=== PATIENT | male | born 1935 | race American Indian/Alaskan Native ===

== ENCOUNTER → 2020-09-27 | Outpatient (REF) | payer OTHER ==
[~2020-09-27] MED LIST: ACET-897 PO; BENA25CA4 PO; CLEO300C2 PO; D31000TA2 PO; DULC5TAB PO; FINA5TAB2 PO; FLOM0.4C39 PO; OXYC1TAB23 PO; PRESCAP PO; ROSU20TA5 PO; VITA-243 PO
== END ==
LOC: M SMT 17:17
PROVIDERS: ATTEND Urology
DX: N21.0 Calculus in bladder (principal); N47.1 Phimosis

== ENCOUNTER 2020-11-01 10:30 | Day surgery (SDC) | payer OTHER ==
[~2020-11-01] VITALS: Ht 177.8 cm; Wt 76.6 kg
[~2020-11-01 10:30] MED LIST changes: +LIDOCAINE 2% 100MG/5ML SDV (FOR ANES.) As Ordered ONE; +LR 1,000 ML IV ONE; +ONDANSETRON 4MG/2ML VIAL As Ordered ONE; -OXYC1TAB23 PO; +dexameTHASONE 4 MG/ML 1ML VIAL (J1100 PER 1MG) As Ordered ONE; +fentaNYL 100 MCG/2 ML INJECTION (J3010) As Ordered ONE; +propofoL 200 MG/20 ML VIAL As Ordered ONE
--- OUTSIDE RECORDS SUMMARY | 2020-11-01 10:38 | CCD ---
Author Author [facility] Organization [facility] Address Unknown Phone Unavailable Care Team Providers Care Cementer Oil Well Name Role Phone NellGeronimo Unavailable PROBLEMS Type Condition ICD9-CM Code [id number] Code Onset Dates Condition S tatus SNOMED Code Notes Problem Bladder stones N21.0 Active [id number] ALLERGIES No Known Allergies ENCOUNTERS from 1935 to 2020-10-03 Encounter Location Date Provider Diagnosis [facility] Urology [address] [place] [address] Sep Geronimo Camejo Bladder stones N21.0 ; Urinary retention R33.9 and Phimosis N47.1 IMMUNIZATIONS No Information SOCIAL HISTORY Tobacco Use: Social History Observation Description Date Details (start date - stop date) Never Smoker Sex Assigned At : Social History Observation Description Sex Assigned At Unknown Confucianism: Question Answer Notes Confucianism No muslim beliefs that would impact health care. Alcohol Screening: Question Answer Notes Did you have a drink containing alcohol in the past year? No Points 0 Interpretation Negative Tobacco Use: Question Answer Notes Are you a: never smoker REASON FOR REFERRAL No Information VITAL SIGNS Weight 167 lbs Sep, Height 71 in Sep, BMI 23.29 kg/m2 Sep, Heart Rate 94 /min Sep, Respiratory Rate 18 /min Sep, Oximetry 93 Sep, Blood pressure systolic 128 mm Hg Sep, Blood pressure diastolic 68 mm Hg Sep, MEDICATIONS Medication SIG (Take, Route, Frequency, Duration) Notes Start Da te End Date Status Rosuvastatin Calcium Acti ve Vitamin D3 Active Finasteride 5 MG 1 tablet Orally Once a day for 30 day(s) Sep, Active Tamsulosin HCl 0.4 MG 1 capsule Orally Once a day for 30 day(s) Active PreserVision AREDS Active Prilosec OTC 20 MG 1 tablet 30 minutes before m orning meal Orally Once a day for 30 day(s) Active PROCEDURES from 1935 to 2020-10-03 Procedure Date Ordered Result Body Site Medication: Cipro Tab 500mg Orally (Ciprofloxacin) 2020-09-27 N/A RESULTS Component Value Reference Range URINE CULTURE Reviewed date:10/03/2020 12:06:37 Interpretation: Performing Lab:[facility], [facility] [address] [address] , ,[place] [address] REASON FOR VISIT consult for surgery MEDICAL (GENERAL) HISTORY Type Description Date Medical History bladder stones Medical History diverticiltis Surgical History mesh in stomach Surgical History cystoscopy 09/27/2020 Hospitalization History diverticulitis Goals Section No Information Health Concerns No Information MEDICAL EQUIPMENT No Information MENTAL STATUS No Information FUNCTIONAL STATUS No Information ASSESSMENTS Encounter Date Diagnosis Assessment Notes Treatment Notes Treatm ent Clinical Notes Sep, Bladder stones (ICD-10 - N21.0) Sep, Urinary retention (ICD-10 - R33.9) Sep, Phimosis (ICD-10 - N47.1) PLAN OF TREATMENT Medication Medication Name Sig Start Date Stop Date Finasteride 5 MG 1 tablet Orally Once a day for 30 day(s) Sep Treatment Notes Test Name Order Date CBC - Complete Blood Count 2020-10-03 Basic Metabolic Profile (BMP) 2020-10-03 PT & APTT 2020-10-03 Electrocardiogram (EKG) 2020-10-03 ADM CHEST 2 VIEW 2020-10-03 Medication: Lidocaine HCl 2% Jelly 5mL Intravesically 2020-10-03 Future Test Test Name Order Date URINE CULTURE [id number] Next Appt Details 2 weeks postop circumcision and bladder litholapaxy, prn Reason: Insurance Providers Payer Name Payer Address Payer Phone Insured Name Patient Relati onship to Insured Coverage Start Date Coverage End Date 'S ADMINSTRATION ([place]) [place] VA CARE [id number] [place] [id number] [address]
--- OUTSIDE RECORDS SUMMARY | 2020-11-01 10:38 | CCD ---
Author Author [facility] Organization [facility] Address Unknown Phone Unavailable Care Team Providers Care Wedger Name Role Phone BryantCarlos bailey Unavailable PROBLEMS Type Condition ICD9-CM Code [id number] Code Onset Dates Condition S tatus W/U Status Risk SNOMED Code Notes Problem Bladder stones N21.0 Active confirmed 07687 003 ALLERGIES No Known Allergies ENCOUNTERS from 1935 to 2020-10-29 Encounter Location Date Provider Diagnosis [facility] Urology [address] [place] [address] Oct Carlos Hurtado IMMUNIZATIONS No Information SOCIAL HISTORY Tobacco Use: Social History Observation Description Date Details (start date - stop date) Never Smoker Sex Assigned At : Social History Observation Description Sex Assigned At Unknown Congregation: Question Answer Notes Congregation No gnosticism beliefs that would impact health care. Alcohol Screening: Question Answer Notes Did you have a drink containing alcohol in the past year? No Points 0 Interpretation Negative Tobacco Use: Question Answer Notes Are you a: never smoker REASON FOR REFERRAL No Information VITAL SIGNS No information MEDICATIONS Medication SIG (Take, Route, Frequency, Duration) [...] a day for 30 day(s) Active PROCEDURES No Information RESULTS No Results REASON FOR VISIT Patient Update MEDICAL (GENERAL) HISTORY Type Description Date Medical History bladder stones Medical History diverticiltis Surgical History mesh in stomach Surgical History cystoscopy 09/27/2020 Hospitalization History diverticulitis Goals Section No Information Health Concerns No Information MEDICAL EQUIPMENT No Information MENTAL STATUS No Information FUNCTIONAL STATUS No Information ASSESSMENTS No Information PLAN OF TREATMENT Medication Medication Name Sig Start Date Stop Date Finasteride 5 MG 1 tablet Orally Once a day for 30 day(s) Sep Next Appt Details Provider Name:Thais Kaba, 2020-11-04 9 11:30:00 AM, [address], [place], [address], Insurance Providers Payer Name Payer Address Payer Phone Insured Name Patient Relati onship to Insured Coverage Start Date Coverage End Date 'S ADMINSTRATION ([place]) [place]ARE [address] [address] [employer] [id number] [address] self
--- OUTSIDE RECORDS SUMMARY | 2020-11-01 10:38 | CCD ---
Author Author [facility] Organization [employer] [facility] Address Unknown Phone Unavailable Care Team Providers Care Pill Maker Name Role Phone Thais Kaba Unavailable PROBLEMS Type Condition ICD9-CM Code [id number] Code Onset Dates Condition S tatus SNOMED Code Notes Problem Bladder stones N21.0 Active [id number] ALLERGIES No Known Allergies ENCOUNTERS from 1935 to 2020-09-30 Encounter Location Date Provider Diagnosis [facility] Urology [address] [place] [address] Sep Thais Kaba Pre-op testing Z01.818 IMMUNIZATIONS No Information SOCIAL HISTORY Tobacco Use: Social History Observation Description Date Details (start date - stop date) Never Smoker Sex Assigned At : Social History Observation Description Sex Assigned At Unknown Baptist: Question Answer Notes Baptist No roman catholic beliefs that would impact health care. Alcohol [...] Information RESULTS No Results REASON FOR VISIT COVID test MEDICAL (GENERAL) HISTORY Type Description Date Medical History bladder stones Medical History diverticiltis Surgical History mesh in stomach Surgical History cystoscopy 09/27/2020 Hospitalization History diverticulitis Goals Section No Information Health Concerns No Information MEDICAL EQUIPMENT No Information MENTAL STATUS No Information FUNCTIONAL STATUS No Information ASSESSMENTS Encounter Date Diagnosis Assessment Notes Treatment Notes Treatm ent Clinical Notes Sep, Pre-op testing (ICD-10 - Z01.818) PLAN OF TREATMENT Medication Medication Name Sig Start Date Stop Date Finasteride 5 MG 1 tablet Orally Once a day for 30 day(s) Sep Treatment Notes Test Name Order Date Coronavirus 2019 NOSE (Send Out) COVID 2020-09-30 Insurance Providers Payer Name Payer Address Payer Phone Insured Name Patient Relati onship to Insured Coverage Start Date Coverage End Date 'S ADMINSTRATION ([place]) NON VA CARE [address] [address] [facility] [id number] [address] self
--- OUTSIDE RECORDS SUMMARY | 2020-11-01 10:38 | CCD ---
Author Author [facility] [employer] [facility] Organization [facility] [employer] [facility] Address Unknown Phone Unavailable Care Team Providers Care Elevated Motorman Name Role Phone Thais Kaba Unavailable PROBLEMS Type Condition ICD9-CM Code [id number] Code Onset Dates Condition S tatus W/U Status Risk SNOMED Code Notes Problem Bladder stones N21.0 Active confirmed 70810 003 ALLERGIES No Known Allergies ENCOUNTERS from 1935 to 2020-10-11 Encounter Location Date Provider Diagnosis [facility] Urology [address] [place] [address] Oct Thais Recore IMMUNIZATIONS No Information SOCIAL HISTORY Tobacco Use: Social History Observation Description Date Details (start date - stop date) Never Smoker Sex Assigned At : Social History Observation Description Sex Assigned At Unknown Samaritan: Question Answer Notes Samaritan No mosque beliefs that would impact health care. Alcohol [...] Information RESULTS No Results REASON FOR VISIT Surgery? MEDICAL (GENERAL) HISTORY Type Description Date Medical [...] Provider Name:Thais Kaba, 2020-11-04 9 11:30:00 AM, [address], [place], [address], Insurance Providers Payer Name Payer Address Payer Phone Insured Name Patient Relati onship to Insured Coverage Start Date Coverage End Date 'S ADMINSTRATION ([place]) NON VA CARE [address] [address] [facility] [id number] [address] self
--- OUTSIDE RECORDS SUMMARY | 2020-11-01 10:39 | CCD ---
Author Author [facility] [employer] em[facility] Organization [facility] [employer] [facility] Address Unknown Phone Unavailable Care Team Providers Care Piece Presser Name Role Phone NellGeronimo Unavailable PROBLEMS Type Condition ICD9-CM Code [id number] Code Onset Dates Condition S tatus SNOMED Code Notes Problem Bladder stones N21.0 Active [id number] ALLERGIES No Known Allergies ENCOUNTERS from 1935 to 2020-09-29 Encounter Location Date Provider Diagnosis [facility] Urology [address] [place] [address] Sep Geronimo Camejo IMMUNIZATIONS No Information SOCIAL HISTORY Tobacco Use: Social History Observation Description Date Details (start date - stop date) Never Smoker Sex Assigned At : Social History Observation Description Sex Assigned At Unknown Cheondoism: Question Answer Notes Cheondoism No caodaism beliefs that would impact health care. Alcohol [...] Information RESULTS No Results REASON FOR VISIT Circ MEDICAL (GENERAL) HISTORY Type Description Date Medical [...] Once a day for 30 day(s) Sep Insurance Providers Payer Name Payer Address Payer Phone Insured Name Patient Relati onship to Insured Coverage Start Date Coverage End Date 'S ADMINSTRATION ([place]) [place] CARE [address] [address] [facility] [id number] [address] self
--- OUTSIDE RECORDS SUMMARY | 2020-11-01 10:39 | CCD ---
Author Author [facility] Organization [facility] Address Unknown Phone Unavailable Care Team Providers Care Napkin Machine Operator Name Role Phone Car Fiore MD Unavailable Unavailable Jennifer Camejo MD Unavailable Unavailable Jennifer Camejo MD Unavailable Unavailable Nell, Jennifer Melton MD Unavailable Unavailable Nell, Jennifer Melton MD Unavailable Unavailable Jennifer Camejo MD Unavailable Unavailable Nell, Jennifer Melton MD Unavailable Unavailable Nell, Jennifer Melton MD Unavailable Unavailable Jennifer Camejo MD Unavailable Unavailable Nell, Jennifer Melton MD Unavailable Unavailable Jennifer Camejo MD Unavailable Unavailable Jennifer Camejo MD Unavailable Unavailable Nell, Jennifer Melton MD Unavailable Unavailable Nell, Jennifer Melton MD Unavailable Unavailable Jennifer Camejo MD Unavailable Unavailable Jennifer Camejo MD Unavailable Unavailable Jennifer Camejo MD Unavailable Unavailable Freedman, Zenon Duncan PA Unavailable Freedman R Duncan PA Unavailable Freedman R Duncan PA Unavailable Freedman R Duncan PA Unavailable Freedman R Duncan PA Unavailable Freedman R Duncan PA Unavailable Freedman, R Duncan PA Unavailable Freedman, R Duncan PA Unavailable Tano R Duncan PA Unavailable Car Fiore MD Unavailable Unavailable Galdino GOMEZ MD Unavailable Unavailable Galdino GOMEZ MD Unavailable Unavailable Galdino GOMEZ MD Unavailable Unavailable Galdino GOMEZ MD Unavailable Unavailable MARAVEGIAS, Galdino HENNESSY MD Unavailable Unavailable MARAVEGIAS, Galdino HENNESSY MD Unavailable Unavailable MARAVEGIAS, Galdino HENNESSY MD Unavailable Unavailable MARAVEGIAS, Galdino HENNESSY MD Unavailable Unavailable MARAVEGIAS, Galdino HENNESSY MD Unavailable Unavailable MARAVEGIAS, Galdino HENNESSY MD Unavailable Unavailable MARAVEGIAS, Galdino HENNESSY MD Unavailable Unavailable MARAVEGIAS, Galdino HENNESSY MD Unavailable Unavailable MARAVEGIAS, Galdino HENNESSY MD Unavailable Unavailable MARAVEGIAS, Galdino HENNESSY MD Unavailable Unavailable EliuRos Unavailable Unavailable MEDENT_8646, [id number] Unavailable MEDENT_8646, [id number] Unavailable MEDENT_8646, [id number] Unavailable MEDENT_8646, [id number] Unavailable MEDENT_8646, [id number] Unavailable MEDENT_8646, [id number] Unavailable MEDENT_8646, [id number] Unavailable MEDENT_8646, [id number] Unavailable MEDENT_8646, [id number] Unavailable MEDENT_8646, [id number] Unavailable MEDENT_8646, [id number] Unavailable MEDENT_8646, [id number] Unavailable MEDENT_8646, [id number] Unavailable MEDENT_8646, [id number] Unavailable RAYMUNDO, Usha BRITT Unavailable Unavailable RAYMUNDO, Usha BRITT Unavailable Unavailable RAYMUNDO, Uhsa BRITT Unavailable Unavailable RAYMUNDO, Usha WANG PA Unavailable Unavailable RAYMUNDO, Usha BRITT Unavailable Unavailable RAYMUNDO, Usha BRITT Unavailable Unavailable RAYMUNDO, Usha BRITT Unavailable Unavailable RAYMUNDO, A KATHLEEN PA Unavailable Unavailable RAYMUNDO, A KATHLEEN PA Unavailable Unavailable RAYMUNDO, A KATHLEEN PA Unavailable Unavailable RAYMUNDO, A KATHLEEN PA Unavailable Unavailable RAYMUNDO, A KATHLEEN PA Unavailable Unavailable RAYMUNDO, A KATHLEEN PA Unavailable Unavailable Rice, A Cecy MARTINEZ Unavailable Unavailable Rice, Usha Sam MD Unavailable Unavailable ZEGIL, D THUY CYLINDER BLOCK MECHANIC Unavailable Unavailable ZEGIL, D THUY CYLINDER BLOCK MECHANIC Unavailable Unavailable ZEGIL, D THUY CYLINDER BLOCK MECHANIC Unavailable Unavailable ELIU, ROS PA Unavailable Unavailable ELIU, ROS PA Unavailable Unavailable ELIU, ROS PA Unavailable Unavailable ELIU, ROS PA Unavailable Unavailable ELIU, ROS PA Unavailable Unavailable ELIU, ROS PA Unavailable Unavailable ELIU, ROS PA Unavailable Unavailable Jennifer Camejo MD Unavailable Unavailable Re-disclosure Warning The records that you are about to access may contain information from federally-assisted alcohol or drug abuse programs. If such information is present, then the following federally mandated warning applies: This information has been disclosed to you from records protected by federal confidentiality rules (42 CFR part 2). The federal rules prohibit you from making any further disclosure of this information unless further disclosure is expressly permitted by the written consent of the person to whom it pertains or as otherwise permitted by 42 CFR part 2. A general authorization for the release of medical or other information is NOT sufficient for this purpose. The Federal rules restrict any use of the information to criminally investigate or prosecute any alcohol or drug abuse patient.The records that you are about to access may contain highly sensitive health information, the redisclosure of which is protected by Article 27-F of the [facility] Public Health law. If you continue you may have access to information: Regarding HIV / AIDS; Provided by facilities licensed or operated by the [facility] Office of Mental Health; or Provided by the [facility] Office for People With Developmental Disabilities. If such information is present, then the following [facility] mandated warning applies: This information has been disclosed to you from confidential records which are protected by state law. State law prohibits you from making any further disclosure of this information without the specific written consent of the person to whom it pertains, or as otherwise permitted by law. Any unauthorized further disclosure in violation of state law may result in a fine or assisted sentence or both. A general authorization for the release of medical or other information is NOT sufficient authorization for further disc losure. Allergies and Adverse Reactions Type Description Substance Reaction Status Data Source(s ) Drug allergy Drug allergy Penicillins Hives [facility] Drug allergy Drug allergy No Known Allergies [facility] Encounters Encounter Providers Location Date Indications Data Source(s ) Outpatient Attender: Wiley Fiore MDAttender: Wiley Fiore MD ED-LABPNP 10/27/2020 09:36:00 AM EST - 10/27/2020 09:37:00 AM EST [id number] [facility] [id number] Patient discharged. Emergency Attender: Duncan BRITT ED-ED 021 09:03:00 AM EST - 10/27/2020 10:12:00 AM EST NEEDS CATHATER PUT IN [facility] NEEDS CATHATER PUT IN Patient discharged. Emergency Attender: Cecy Rashid MD ED-ED 10/24 08:01:00 AM EST - 10/24/2020 10:27:00 AM EST CATHETER ISSUE [facility] CATHETER ISSUE Patient discharged. [place] [address] [facility] [address] 10/24/2020 12:00:00 AM EST eCW1 ([facility]) Outpatient CPSCAORT-LABEJN 10/23/2020 09:44:00 AM EST [facility] Emergency Attender: Ros WORTHYttender: ROS BRITT ED-ED 10/23/2020 09:07:00 AM EST - 10/23/2020 10:33:00 AM EST CATHETER ISSUE [facility] CATHETER ISSUE Patient discharged. Outpatient Attender: Geronimo Camejo MDAttender: Geronimo Camejo MD ED-LAB 10/23/2020 08:29:00 AM EST - 10/23/2020 08:30:00 AM EST N210 N471 [facility] N210 N471 Patient discharged. [place] [address] [facility] [address] 10/09/2020 12:00:00 AM EST eCW1 ([facility]) Unknown [address] [facility] [address] 09/30/2020 12:00:00 AM EST eCW1 ([facility]) (Cysto1) Urology [address] [place] [address] 09/27/2020 12:00:00 AM EST eCW1 [facility] Unknown [address] [facility] [address] 09/27/2020 12:00:00 AM EST [facility] [place] [address] [facility] [place] [address] 09/25/2020 12:00:00 AM EST eCW1 [facility]) Unknown [address] [facility] [place] [address] 09/17/2020 12:00:00 AM EST eCW1 [facility]) Unknown [address] [facility] [address] 09/17/2020 12:00:00 AM EST eCW1 ([facility]) Unknown [address] [facility] [address] 09/02/2020 12:00:00 AM EST eCW1 [facility]) Out[place] [address] [facility] [address] 08/23/2020 12:00:00 AM EST [facility]CW1 [facility] Outpatient Attender: [id number] [facility]_8646 ED-IMAG 08/09/2020 02:49:00 PM EST - 08/09/2020 02:50:00 PM EST R33.9 [facility] R33.9 Patient discharged. Outpatient CPSCAORT-LABEJN 07/24/2020 02:55:00 PM EST [facility] Emergency Attender: KATHLEEN BRITT ED-ED 07/24 12:49:00 PM EST - 07/24/2020 06:37:00 PM EST BLOOD IN URINE [facility] BLOOD IN URINE Patient discharged. Outpatient CPSCAORT-LABEJN 05/31/2020 02:49:00 PM EDT [facility] Emergency Attender: MINOO GOMEZ MD ED-ED 0 05/31/2020 10:52:00 AM EDT - 05/31/2020 12:17:00 PM EDT WRIST INJURY FOLLOW UP [facility] WRIST INJURY FOLLOW UP Patient discharged. Emergency Attender: THUY MULLER ED-ED 04/2020 11:59:00 AM EDT - 05/14/2020 01:43:00 PM EDT FALL LEFT WRIST [facility] FALL LEFT WRIST Patient discharged. Outpatient CPSCAORT-LABEJN 05/10/2020 02:21:00 PM EDT [facility] Emergency Attender: MINOO GOMEZ MD ED-ED 0 05/10/2020 11:48:00 AM EDT - 05/10/2020 12:40:00 PM EDT UTI PROBLEM [facility] UTI PROBLEM Patient discharged. Medications Medication Brand Name Start Date Product Form Dose Route Admi nistrative Instructions Pharmacy Instructions Status Indications Reaction Description Data Source(s) 300 mg 10/23/2020 12:00:00 AM EST capsule 21 TAKE ONE CAPSULE BY MOUTH THREE TIMES A DAY TAKE ONE CAPSULE BY MOUTH THREE TIMES A DAY SOLD: 10/23/2020 [facility] Finasteride 5 MG Oral Tablet Finasteride 5 MG 09/27/2020 12:00:00 A M EST 1.0 {tablet} active Finasteride 5 MG eCW1 ( [facility]) Finasteride 5 MG Oral Tablet Finasteride 5 MG 09/27/2020 12:00:00 A M EST 1.0 {tablet} active Finasteride 5 MG eCW1 ( [facility]) Finasteride 5 MG Oral Tablet Finasteride 5 MG 09/27/2020 12:00:00 A M EST 1.0 {tablet} active Finasteride 5 MG eCW1 ( [facility]) Finasteride 5 MG Oral Tablet Finasteride 5 MG 09/27/2020 12:00:00 A M EST 1.0 {tablet} active Finasteride 5 MG eCW1 ( [facility]) Finasteride 5 MG Oral Tablet Finasteride 5 MG 09/27/2020 12:00:00 A M EST 1.0 {tablet} active Finasteride 5 MG eCW1 ( [facility]) Finasteride 5 MG Oral Tablet Finasteride 5 MG 09/27/2020 12:00:00 A M EST 1.0 {tablet} active Finasteride 5 MG eCW1 ( [facility]) Cephalexin 500 MG Oral Capsule CEPHALEXIN 05/31/2020 12:00:00 AM EDT capsule 30 TAKE ONE CAPSULE BY MOUTH THREE TIMES A DAY TAKE ONE C APSULE BY MOUTH THREE TIMES A DAY SOLD: 06/06/2020 [facility] 0.4 mg 05/11/2020 12:00:00 AM EDT capsule 90 TAKE ONE CAPSULE BY MOUTH EVERY DAY TAKE ONE CAPSULE BY MOUTH EVERY DAY SOLD: 05/16/2020 [facility] 10 mg 05/11/2020 12:00:00 AM EDT capsule,delayed release (DR/EC) 90 TAKE ONE CAPSULE BY MOUTH EVERY DAY TAKE ONE CAPSULE BY MOUTH EVERY DAY SOLD: 05/16/2020 [facility] Sulfamethoxazole 800 MG / Trimethoprim 160 MG Oral Tab let 800-160 mg SULFAMETHOXAZOLE/TRIMETHOPRIM 05/10/2020 12:00:00 AM EDT tablet 20 TAKE ONE TABLET BY MOUTH TWICE A DAY TAKE ONE TABLET BY MOUTH TWICE A DAY SOLD: 05/10/2020 [facility] Insurance Providers Payer name Policy type / Coverage type Policy ID Covered green party ID Covered green party's relationship to yen Policy Yen Plan Information 'S ADMINISTRATION [id number] SP [id number] MEDICAID [id number] S [id number] MEDICARE [id number] [id number] [facility] [id number] S [id number] MEDICAID [id number] S [id number] MEDICARE [id number] S [id number] M Problems, Conditions, and Diagnoses Code Display Name Description Problem Type Effective Dates Data Source(s) N21.0 Calculus of bladder Bladder stones Problem 08/23/2020 1 2:00:00 AM EST eCW1 ([facility]) Z11.52 ENCOUNTER FOR SCREENING FOR COVID-19 ENC OUNTER FOR SCREENING FOR COVID-19 Diagnosis 10/27/2020 09:36:00 AM EST [facility]un Z01.812 Encounter for preprocedural laboratory e xamination ENCOUNTER FOR PREPROCEDURAL LABORATORY EXAMINATION Diagnosis 10/27/2020 09:36:00 AM EST [facility] N47.1 Phimosis PHIMOSIS Diagnosis 10/23/2020 08:29:00 AM [facility] N21.0 Calculus in bladder CALCULUS IN BLADDER Diagnosis 0 10/23/2020 08:29:00 AM [facility] N28.1 Cyst of kidney, acquired CYST OF KIDNEY, ACQUIRED Diag nosis 08/09/2020 02:49:00 PM [facility] R33.9 Retention of urine, unspecified RETENTION OF URINE, UN SPECIFIED Diagnosis 08/09/2020 02:49:00 PM [facility] Z87.440 Personal history of urinary (tract) infe ctions PERSONAL HISTORY OF URINARY (TRACT) INFECTIONS Diagnosis 07/24/2020 12:49:00 PM [facility] R31.9 Hematuria, unspecified HEMATURIA, UNSPECIFIED Diagnosi s 07/24/2020 12:49:00 PM [facility] N39.0 Urinary tract infection, site not specif ied URINARY TRACT INFECTION, SITE NOT SPECIFIED Diagnosis 07/24/2020 12:49:00 PM [facility] spital N13.39 Other hydronephrosis OTHER HYDRONEPHROSIS Diagnosis 07/24/2020 12:49:00 PM [facility] Y92.[address] or not applicable UNSPECIFIED PLACE OR NOT APPLICABLE Diagnosis 05/14/2020 11:59:00 AM [facility] W01.198A Fall on same level from slip ping, tripping and stumbling with subsequent striking against other object, initial encounter FALL SAME LEV FROM SLIP/TRIP W STRIKE AGNST OTH OBJECT, INIT Diagnosis 05/14/2020 11:59:0 0 AM [facility] S52.532A Colles' fracture of left radius, initial encounter for closed fracture COLLES' FRACTURE OF LEFT RADIUS, INIT FOR CLOS FX Diagnosis 04/2020 11:59:00 AM [facility] N40.1 Benign prostatic hyperplasia with lower urinary tract symptoms BENIGN PROSTATIC HYPERPLASIA WITH LOWER URINARY TRACT SYMP Diagnosis 11:48:00 AM [facility] Surgeries/Procedures Procedure Description Date Indications Data Source(s) ECG ROUTINE ECG W/LEAST 12 LDS TRCG ONLY W/O I&R ELECTROCARD IOGRAM TRACING 10/23/2020 12:00:00 AM [facility] URNLS DIP STICK/TABLET REAGENT AUTO MICROSCOPY URINALYSIS AU TO W/SCOPE 10/23/2020 12:00:00 AM [facility] Non-covered item or service NON-COVERED ITEM OR SERVICE 10/07 12:00:00 AM [facility] TOBACCO USE ASSESSED 09/27/2020 12:00:00 AM [facility] eC1 ([facility]) Gupta Catheter Coude Insertion 18F 08/23/2020 12:00:00 AM [place] [address] ([facility]) US RETROPERITONEAL REAL TIME W/IMAGE LIMITED US EXAM ABDO BA CK WALL DELGADO 08/09/2020 12:00:[address] [facility] [address] ABDOMEN & PELVIS W/O CONTRST 1/> BODY [facility] CT ABD & PE LV 1/> REGNS 07/24/2020 12:00:00 AM [facility] Low osmolar contrast material, 300-399 mg/ml iodine co ncentration, per ml Locm 300-399mg/ml iodine,1ml Long 07/24/2020 12:00:00 AM [facility] [address] SARS-COV-2 COVID-19 AMP PRB 07/24/2020 12:00:00 AM [facility] THROMBOPLASTIN TIME PARTIAL PLASMA/WHOLE BLOOD THROMBOPLASTI N TIME PARTIAL 07/24/2020 12:00:00 AM [facility] PROTHROMBIN TIME PROTHROMBIN TIME 07/24/2020 12:00:00 AM [facility] BLOOD COUNT COMPLETE AUTO&AUTO DIFRNTL WBC COUNT COMPLETE CB C W/AUTO DIFF WBC 07/24/2020 12:00:00 AM [facility] COMPREHENSIVE METABOLIC PANEL COMPREHEN METABOLIC PANEL 07/07 12:00:00 AM [facility] Infusion, normal saline solution , 1000 cc 07/24/2020 12:00:00 AM [facility] Injection, ciprofloxacin for intravenous infusion, 200 mg 07/24/2020 12:00:00 AM [facility] THER PROPH/DX NJX IV PUSH SINGLE/1ST SBST/DRUG THER/PROPH/DI AG INJ IV PUSH 07/24/2020 12:00:00 AM [facility] EMERGENCY DEPT VISIT HIGH SEVERITY&THREAT FUNCJ EMERGENCY DE PT VISIT 07/24/2020 12:00:00 AM [facility] RADEX WRIST 2 VIEWS X-RAY EXAM OF WRIST 05/14/2020 12:00:00 AM [facility] APPLICATION SHORT ARM SPLINT FOREARM-HAND STATIC APPLY FOREA RM SPLINT 05/14/2020 [facility] MODERATE SEVERITY EMERGENCY DEPT VISIT 05/14/2020 12:00:00 AM [facility] CUL BACT AEROBIC ADDL METHS DEFINITIVE EA ISOL CULTURE AEROB IC IDENTIFY 05/10/2020 [facility] LOW/MODER SEVERITY EMERGENCY DEPT VISIT 05/10/2020 12:00:00 AM [facility] Results ID Date Data Source [id number] 10/27/2020 09:00:00 AM EST [facility] Name Value Range Interpretation Code Description Data Lita rce(s) Supporting Document(s) Respiratory specimen severe acute respir atory syndrome coronavirus 2 (SARS-CoV-2) RNA Negative (qualifier value) [facility] This lab was ordered by [facility] and reported by . ID Date Data Source [id number] 10/28/2020 03:40:00 PM [facility] Name Value Range Interpretation Code Description Data Lita rce(s) Supporting Document(s) SARS-CoV-2 RNA INHOUSE Negative Normal (applies to non-n umeric results) [facility] THIS IS A STATE REPORTABLE COMMUNICABLE DISEASE. Testing was performed using the [employer] COVID-19 MDx Assay. This test has been authorized by FDA under an (Emergency Use Authorization) EUA for use by authorized laboratories for individuals who are suspected of COVID-19 by their healthcare provider. This test is only authorized for the duration of the declaration that circumstances exist justifying the authorization of emergency use of in vitro diagnostic tests for detection and/or diagnosis of SARS-CoV-2. Methodology: Endpoint RT-PCR. Fact sheets for this EUA assay can be found at the following links: Providers: https://www.fda.gov/media/327029/download Patients : https://www.fda.gov/media/058628/download THIS IS A [facility] REPORTABLE COMMUNICABLE DISEASE Negative results do not preclude SARS-CoV-2 infection and should not be used as the sole basis for patient management decisions. Negative results must be combined with clinical observations,patient history, and epidemiological information. ID Date Data Source [id number] 10/25/2020 02:46:00 PM EST [facility] spital Procedure Performed By: [facility] [address] [place] [address] Director: Patrizia Frias MD Procedure Performed By: [facility] [address] [place] [address] Director: Patrizia Frias MD Name Value Range Interpretation Code Description Data Lita rce(s) Supporting Document(s) Urine Culture [facility] ID Date Data Source [id number] 10/25/2020 02:19:00 PM EST [facility] Procedure Performed By: [facility] [address] [place] [address] Director: Patrizia Frias MD Name Value Range Interpretation Code Description Data Lita rce(s) Supporting Document(s) Urine Culture [facility] ospital ID Date Data Source [id number] 10/23/2020 10:00:00 AM [facility] Collected By: Nurse Initials: al Time Collected: 941 Collected By: Nurse Initials: al Time Collected: 941 Name Value Range Interpretation Code Description Data Lita rce(s) Supporting Document(s) Color,Urine Colorl-Dk Y Normal (applies to non-numeric res ults) [facility] Clarity,Urine Clear Normal (applies to non-numeric re sults) [facility] Specific [place],Urine 1.005-1.030 Normal (applies to non- numeric results) [facility] pH,Urine 5.0-8.0 Normal (applies to non-numeric resul ts) [facility] Protein,Urine Negative Normal (applies to non-numeric re sults) [facility] Glucose,Urine Negative Normal (applies to non-numeric re sults) [facility] Ketones,Urine Negative Normal (applies to non-numeric re sults) [facility] Blood,Urine Negative [facility] Bil[facility]rine Negative Normal (applies to non-numeric results) [facility] Urobilinogen,Urine 0.2-1.0 Normal (applies to non-numer ic results) [facility] Leukocyte Esterase,Urine Negative [facility] Nitrite,Urine Negative Normal (applies to non-numeric re sults) [facility] ID Date Data Source [id number] 10/23/2020 10:00:00 AM [facility] Collected By: Nurse Initials: al Time Collected: 941 Collected By: Nurse Initials: al Time Collected: 941 Name Value Range Interpretation Code Description Data Lita rce(s) Supporting Document(s) RBC,Urine None Seen [facility] WBC,Urine None Seen [facility] Casts,Urine None Seen Normal (applies to non-numeric resu lts) [facility] Epithelial Cells,Urine None - Few Normal (applies to non-n umeric results) [facility] Bacteria,Urine None Seen [facility] ital ID Date Data Source [id number] 10/23/2020 09:44:00 AM [facility] Imaging Services Department Imaging Report [address] [place] [address] %(RAD)RES..mtdd.print.filter("line") Name: JOANNE LEIVA Car : 1935 Age/Sex: 84M Ordering Provider: Geronimo Camejo MD Med Rec #: [id number] Reg Status: REG REF Room #: Date of Service: 10/23/20 Report Number: [id number] cc:PCP None; Geronimo Camejo MD Send Report To: [id number] XRP/XR Chest 2 View [Pa & Lat] Reason for exam: PHIMOSIS Prior examination: None available. FINDINGS: There is no evidence of acute consolidation or congestive heart failure. The lungs are hyperexpanded bilaterally. The heart is not enlarged. There is no hilar adenopathy. The aorta is unfolded, tortuous, and calcified. There are no large pleural effusions. The bones are demineralized with degenerative changes. IMPRESSION: No evidence of significant acute pulmonary disease. Time portable performed: Fluoroscopy time in seconds: Number of Exposures: Contrast Agent in ml: Method of Administration: REPORT SIGNATURE ON FILE Reported By: Sheng Harris MD <Electronically signed by Sheng Harris MD> 10/23/20 1146 Dictation Date/Time: 10/23/2012 Transcribed Date/Time: 10/23/2044 Gm: NICHOLAS Name Value Range Interpretation Code Description Data Lita rce(s) Supporting Document(s) ID Date Data Source [id number] 10/24/2020 10:37:00 AM [facility] spital Procedure Performed By: [facility] [address] [place] [address] Director: Patrizia Frias MD Mixed david: Mixed david, probable contamination. Name Value Range Interpretation Code Description Data Lita rce(s) Supporting Document(s) ID Date Data Source [id number] 10/23/2020 09:46:00 AM [facility] Name Value Range Interpretation Code Description Data [facility] rce(s) Supporting Document(s) PT 9.2-11.7 Normal (applies to non-numeric results) [facility] INR Normal (applies to non-numeric results) [facility] The use of INR is restricted to patients on stable oral anticoagulant. Therapeutic Range: 2.0 - 3.0 High Risk Range: 2.5 - 3.5 ID Date Data Source [id number] 10/23/2020 09:46:00 AM [facility] Name Value Range Interpretation Code Description Data Lita rce(s) Supporting Document(s) PTT 23.8-37.9 Below low normal [facility] spital ID Date Data Source [id number] 10/23/2020 09:32:00 AM [facility] Name Value Range Interpretation Code Description Data Lita rce(s) Supporting Document(s) Sodium 140 mmol/L 136-145 Normal (applies to non-numeric resul ts) [facility] Potassium 3.5-5.1 Normal (applies to non-numeric resul ts) [facility] Chloride 102 mmol/L 98-107 Normal (applies to non-numeric resul ts) [facility] Carbon Dioxide CO2 21-32 Normal (applies to non-numer ic results) [facility] Anion Gap 5.0-16.0 Normal (applies to non-numeric resul ts) [facility] BUN 12 mg/dL 7-18 Normal (applies to non-numeric results) [facility] Creatinine,Serum 0.8-1.5 Normal (applies to non-numeric results) [facility] GFR 56 mL/min >60 Below low normal [facility] spital Glucose Level 97 mg/dL 60-99 Normal (applies to non-numeric re sults) [facility] Reference range is only applicable when patient is fasting Note the following drug interference: Sulfasalazine Sulfapyridine Can see falsely depressed Can see falsely elevated result with up to 17% results with up to 11% decrease in measurement increase in measurement Recommend patients be collected for this test prior to administration of either drug. Calcium 8.5-10.1 Normal (applies to non-numeric resul ts) [facility] ID Date Data Source [id number] 10/23/2020 09:18:00 AM [facility] Name Value Range Interpretation Code Description Data Lita rce(s) Supporting Document(s) White Blood Count 3.5-10.5 Normal (applies to non-numeri c results) [facility] Red Blood Count 4.30-5.70 Normal (applies to non-numeric results) [facility] Hemoglobin 13.5-17.5 Normal (applies to non-numeric resul ts) [facility] Hematocrit 38.8-50.0 Normal (applies to non-numeric resul ts) [facility] Mean Corpuscular Volume 81.2-95.1 Above high normal [facility] Mean Corpuscular Hgb 25.6-32.2 Normal (applies to non-num raffaele results) [facility] Mean Corpuscular Hgb Conc 32.0-36.0 Normal (applies to no n-numeric results) [facility] Red Cell Distribution Width 11.8-15.6 Normal (appli es to non-numeric results) [facility] Platelet Count 199 x10 3/uL 150-450 Normal (applies to non-numeric results) [facility] Mean Platelet Volume 9.4-12.4 Normal (applies to non-num raffaele results) [facility] Neutrophils% (Auto) 31.0-71.0 Normal (applies to non-nume lizzeth results) [facility] Lymphocytes% (Auto) 20.0-55.0 Normal (applies to non-nume lizzeth results) [facility] Monocytes% (Auto) 4.0-12.0 Normal (applies to non-numeri c results) [facility] Eosinophils% (Auto) 1.0-8.0 Normal (applies to non-nume lizzeth results) [facility] Basophils% (Auto) 0.0-2.0 Normal (applies to non-numeri c results) [facility] Immature Granulocytes% (Auto) 0.0-2.0 Normal (zurdo lies to non-numeric results) [facility] Neutrophils# (Auto) 1.50-6.20 Normal (applies to non-nume lizzeth results) [facility] Lymphocytes# (Auto) 1.20-4.00 Normal (applies to non-nume lizzeth results) [facility] Monocytes# (Auto) 0.00-0.90 Normal (applies to non-numeri c results) [facility] Eosinophils# (Auto) 0.00-0.50 Normal (applies to non-nume lizzeth results) [facility] Basophils# (Auto) 0.00-0.20 Normal (applies to non-numeri c results) [facility] Immature Granulocytes# (Auto) 0.00-7.00 No rmal (applies to non-numeric results) [facility] ID Date Data Source [id number] 10/24/2020 10:25:00 AM EST [facility] Procedure Performed By: [facility] [address] [place] [address] Director: Patrizia Frias MD Name Value Range Interpretation Code Description Data Lita rce(s) Supporting Document(s) Urine Culture Normal (applies to non-numeric re sults) [facility] ID Date Data Source URINE CULTURE 09/27/2020 12:00:00 AM EST eCW1 ([facility]) Name Value Range Interpretation Code Description Data Lita rce(s) Supporting Document(s) URINE CULTURE eCW1 ([facility]) ID Date Data Source [id number] 09/09/2020 10:17:00 AM EST [facility] Name Value Range Interpretation Code Description Data Lita rce(s) Supporting Document(s) Respiratory specimen severe acute respir atory syndrome coronavirus 2 (SARS-CoV-2) RNA [facility] This lab [facility] and reported by . ID Date Data Source [id number] 08/12/2020 08:25:00 AM EST [facility] Imaging Services Department Imaging Report [address], [place] [address] %(RAD)RES..mtdd.print.filter("line") Name: JOANNE LEIVA : 1935 Age/Sex: 84M Ordering Provider: RENZO Tejada Med Rec #: [id number] Reg Status: DEP REF Room #: Date of Service: 08/09/20 Report Number: [id number] cc:RENZO Tejada; PCP None Send Report To: [id number] US/US Renal Ultrasound Reason for exam: EVALUATE FOR HYDRONEPHROSIS Prior examination: None available. FINDINGS: The right kidney is measured at 10.9 x 5.5 x 7.3 cm. The left kidneymeasures 11.4 x 5 x 5.9 cm. The kidneys are unremarkable in size and echotexture without solid mass or hydronephrosis demonstrated. There is a cyst or minimally complex cyst in the upper pole of the right kidney measuring 1.7 x 1.3 x 2.9 cm. There are unremarkable bilateral resistive indices demonstrated on the current study. IMPRESSION: Small cyst or minimally complex in the right kidney, otherwise unremarkable renal sono gram. REPORT SIGNATURE ON FILE Reported By: Sheng Harris MD <Electronically signed by Sheng Harris MD> 08/12/20 1050 Dictation Date/Time: 08/09/20 1527 Transcribed Date/Time: 08/12/20 0825 Gm: NICHOLAS Name Value Range Interpretation Code Description Data Lita rce(s) Supporting Document(s) ID Date Data Source [id number] 07/24/2020 05:40:00 PM EST [facility] First test? YESEmployed in healthcare? NOSymptomatic per CDC? NOHospitalized? NOICU? NOResident in congregated care? ex long term, [facility] NO? NO Name Value Range Interpretation Code Description Data Lita rce(s) Supporting Document(s) SARS-CoV-2 RNA Negative Normal (applies to non-numeric r esults) [facility] Negative results should be treated as pr esumptive and, if inconsistent with clinical signs and symptoms or necessary for patient management, should be tested with different authorized or cleared molecular tests. Negative results do not preclude SARS-CoV-2 infection and should not be used as the sole basis for patient management decisions. Negative results should be considered in the context of a patient???s recent exposures, history and the presence of clinical signs and symptoms consistent with COVID-19. This test has not been FDA cleared or approved; this test has been authorized by FDA under an Emergency Use Authorization for use by laboratories certified under the Clinical Laboratory Improvement Amendments of 1988 (CLIA), 42 U.S.C. ???263a, to perform moderate complexity/high complexity tests and at the Point of Care (POC), i.e., in patient care settings operating under a CLIA Certificate of Waiver, Certificate of Compliance, or Certificate of Accreditation. Factsheets for healthcare providers: https://www.fda.gov/media/563686/download Factsheets for patients: https://www.fda.gov/media/291668/download The ID NOW Instrument is a rapid molecular in vitro diagnostic test utilizing an isothermal nucleic acid amplification technology intended for the qualitative detection of nucleic acid from the SARS-CoV-2 viral RNA. THIS IS A STATE REPORTABLE COMMUNICABLE DISEASE. Manual entry verified by Lucius Gao 07/24/20 1739 ID Date Data Source [id number] 07/24/2020 03:29:00 PM EST [facility] Name Value Range Interpretation Code Description Data Lita rce(s) Supporting Document(s) Sodium 139 mmol/L 136-145 Normal (applies to non-numeric resul ts) [facility] Potassium 3.5-5.1 Normal (applies to non-numeric resul ts) [facility] Chloride 101 mmol/L 98-107 Normal (applies to non-numeric resul ts) [facility] Carbon Dioxide CO2 21-32 Normal (applies to non-numer ic results) [facility] Anion Gap 5.0-16.0 Normal (applies to non-numeric resul ts) [facility] BUN 20 mg/dL 7-18 Above high normal [facility] ospital Creatinine,Serum 0.8-1.5 Normal (applies to non-numeric results) [facility] GFR 48 mL/min >60 Below low normal [facility] spital Glucose Level 120 mg/dL 60-99 Above high normal [facility] Reference range is only applicable when patient is fasting Note the following drug interference: Sulfasalazine Sulfapyridine Can see falsely depressed Can see falsely elevated result with up to 17% results with up to 11% decrease in measurement increase in measurement Recommend patients be collected for this test prior to administration of either drug. Calcium 8.5-10.1 Normal (applies to non-numeric resul ts) [facility] Bilirubin,Total 0.1-1.9 Normal (applies to non-numeric results) [facility] SGOT(AST) 25 U/L 15-37 Normal (applies to non-numeric resul ts) [facility] Note the following drug interference: Sulfasalazine Sulfapyridine Can see falsely depressed Can see falsely elevated result with up to 10% results with up to 10% decrease in measurement increase in measurement Recommend patients be collected for this test prior to administration of either drug. SGPT(ALT) 65 U/L 12-78 Normal (applies to non-numeric resul ts) [facility] Note the following drug interference: Sulfasalazine Sulfapyridine Can see falsely depressed Can see falsely elevated result with up to 29% results with up to 10% decrease in measurement increase in measurement Recommend patients be collected for this test prior to administration of either drug. Alkaline Phosphatase 170 U/L 38-126 Above high normal [facility] can increase Alkaline Phosp le vels up to 2 times the normal adult value. Normal values for children and adolescents are 2 to 3 times the normal adult value. Total Protein 6.0-8.2 Normal (applies to non-numeric re sults) [facility] Albumin Level 3.4-5.0 Below low normal [facility] ID Date Data Source [id number] 07/24/2020 03:12:00 PM [facility] Name Value Range Interpretation Code Description Data Lita rce(s) Supporting Document(s) PTT 23.8-37.9 Normal (applies to non-numeric results) [facility] ID Date Data Source [id number] 07/24/2020 03:12:00 PM [facility] Name Value Range Interpretation Code Description Data Lita rce(s) Supporting Document(s) PT 9.2-11.7 Normal (applies to non-numeric results) [facility] INR Normal (applies to non-numeric results) [facility] The use of INR is restricted to patients on stable oral anticoagulant. Therapeutic Range: 2.0 - 3.0 High Risk Range: 2.5 - 3.5 ID Date Data Source [id number] 07/24/2020 02:54:00 PM EST [facility] Name Value Range Interpretation Code Description Data Lita rce(s) Supporting Document(s) White Blood Count 3.5-10.5 Above high normal [facility] Red Blood Count 4.30-5.70 Normal (applies to non-numeric results) [facility] Hemoglobin 13.5-17.5 Below low normal [facility] ospital Hematocrit 38.8-50.0 Normal (applies to non-numeric resul ts) [facility] Mean Corpuscular Volume 81.2-95.1 Above high normal [facility] Mean Corpuscular Hgb 25.6-32.2 Normal (applies to non-num raffaele results) [facility] Mean Corpuscular Hgb Conc 32.0-36.0 Below low normal [facility] Red Cell Distribution Width 11.8-15.6 Normal (appli es to non-numeric results) [facility] Platelet Count 350 x10 3/uL 150-450 Normal (applies to non-numeric results) [facility] Mean Platelet Volume 9.4-12.4 Below low normal [facility] Neutrophils% (Auto) 31.0-71.0 Above high normal [facility] Lymphocytes% (Auto) 20.0-55.0 Below low normal [facility] Monocytes% (Auto) 4.0-12.0 Normal (applies to non-numeri c results) [facility] Eosinophils% (Auto) 1.0-8.0 Below low normal [facility] Basophils% (Auto) 0.0-2.0 Normal (applies to non-numeri c results) [facility] Immature Granulocytes% (Auto) 0.0-2.0 Normal (zurdo lies to non-numeric results) [facility] Neutrophils# (Auto) 1.50-6.20 Above high normal [facility] Lymphocytes# (Auto) 1.20-4.00 Normal (applies to non-nume lizzeth results) [facility] Monocytes# (Auto) 0.00-0.90 Above high normal [facility] Eosinophils# (Auto) 0.00-0.50 Normal (applies to non-nume lizzeth results) [facility] Basophils# (Auto) 0.00-0.20 Normal (applies to non-numeri c results) [facility] Immature Granulocytes# (Auto) 0.00-7.00 No rmal (applies to non-numeric results) [facility] ID Date Data Source [id number] 07/26/2020 11:45:00 AM EST [facility] Imaging Services Department Imaging Report [address], [place] [address] %(RAD)RES..mtdd.print.filter("line") Name: JOANNE LEIVA : 1935 Age/Sex: 84M Ordering Provider: LORENZA Ward Med Rec #: [id number] Reg Status: [facility] ER Room #: Date of Service: 07/24/20 Report Number: [id number] cc:PCP None Send Report To: [id number] CT/CT Abdomen & Pelvis w&wo Con Reason for exam: gross hematuria FINDINGS: Minimal atelectasis vs. scarring right lower lung. No infiltrate identified in the lower lungs. No enhancing liver lesions. Gallbladder is fluid distended. No gallstones by CT evaluation. There are radiopaque metallic densities identified in the right upper quadrant adjacent to the distal stomach. Correlation recommended. These may represent vascular coils. Pancreas and spleen within normal limits. Bilateral adrenal glands unremarkable. Bilateral moderate to severe hydronephrosis. Dilated bilateral ureters. There is a 12 mm stone in the posterior aspect of the urinary bladder. This may represent a recently passed stone or stones possibly in a right ureterocele No left renal stone. Bladder wall thickening with surrounding inflammation. Prostate gland and seminal vesicals unremarkable. Scattered diverticula along the distal colon, no surrounding inflammation. No free air or free fluid. Degenerative changes lower lumbar spine. IMPRESSION: Moderate to severe bilateral hydronephrosis. There is a 12 mm stone in the posterior aspect of the right posterior aspect of the urinary bladder. Urinary bladder wall thickening consistent with cystitis. No free air or free fluid. While performing the above CT exam, the following dose reduction techniques wereused: *Automated exposure control *Adjustment of the mA and/or kV according to patient size *Use of iterative reconstruction technique CT Dose in mGy: 11 Contrast Agent: Isovue 300 Amount in ml: 85 Method of Administration: Intraveneous REPORT SIGNATURE ON FILE Reported By: Bj Back DO <Electronically signed by Bj Back DO> 07/29/20 1053 Dictation Date/Time: 07/24/20 1618 Transcribed Date/Time: 07/26/20 1145 Gm: EBONIE Name Value Range Interpretation Code Description Data Lita rce(s) Supporting Document(s) ID Date Data Source [id number] 08/19/2020 07:45:00 PM EST [facility] Procedure Performed By: [facility] [address] [place] [address] Director: Patrizia Frias MD Name Value Range Interpretation Code Description Data Lita rce(s) Supporting Document(s) Urine Culture [facility] ID Date Data Source [id number] 07/26/2020 12:20:00 PM EST [facility] Procedure Performed By: [facility] [address] [place] [address] Director: Patrizia Frias MD Procedure Performed By: [facility] [address] [place] [address] Director: Patrizia Frias MD Name Value Range Interpretation Code Description Data Lita rce(s) Supporting Document(s) Urine Culture [facility] ID Date Data Source [id number] 07/24/2020 01:48:00 PM [facility] Collected By: Nurse Initials: af Time Collected: 1310 Collected By: Nurse Initials: af Time Collected: 1310 Name Value Range Interpretation Code Description Data Lita rce(s) Supporting Document(s) Color,Urine Colorl-Dk Y Normal (applies to non-numeric res ults) [facility] Clarity,Urine Clear Normal (applies to non-numeric re sults) [facility] Specific [place],Urine 1.005-1.030 Normal (applies to non- numeric results) [facility] pH,Urine 5.0-8.0 Normal (applies to non-numeric resul ts) [facility] Protein,Urine Negative [facility] liudmila Glucose,Urine Negative Normal (applies to non-numeric re sults) [facility] Ketones,Urine Negative Normal (applies to non-numeric re sults) [facility] Blood,Urine Negative [facility] l Bilirubin,Urine Negative Normal (applies to non-numeric results) [facility] Urobilinogen,Urine 0.2-1.0 Normal (applies to non-numer ic results) [facility] Leukocyte Esterase,Urine Negative [facility] Nitrite,Urine Negative Normal (applies to non-numeric re sults) [facility] ID Date Data Source [id number] 07/24/2020 01:48:00 PM [facility] Collected By: Nurse Initials: af Time Collected: 131 Collected By: Nurse Initials: af Time Collected: 131 Name Value Range Interpretation Code Description Data [facility] rce(s) Supporting Document(s) RBC,Urine None Seen [facility] WBC,Urine None Seen [facility] Casts,Urine None Seen Normal (applies to non-numeric resu lts) [facility] Squamous Cells,Urine None Seen [facility] Bacteria,Urine None Seen [facility] ital ID Date Data Source [id number] 06/05/2020 09:03:00 AM EDT [facility] spital Procedure Performed By: [facility] [address] [place] [address] Director: Patrizia Frias MD Procedure Performed By: [facility] [address] [place] [address] Director: Patrizia Frias MD Aerococcus sp. No CLSI (or other) standardized method for AST. Frequently susceptible to penicillins; effectiveness of cephalosporins uncertain. Ayesha's Diagnostic Microbiology, Eleventh edition QUANTITY: >100,000/mL {AEROCOCCUS URINAE} AEROCOCCUS URINAESCT Name Value Range Interpretation Code Description Data Lita rce(s) Supporting Document(s) ID Date Data Source [id number] 06/02/2020 09:21:00 AM EDT [facility] Procedure Performed By: [facility] [address] [place] [address] Director: Patrizia Frias MD Name Value Range Interpretation Code Description Data Lita rce(s) Supporting Document(s) Urine Culture [facility] ospital ID Date Data Source [id number] 05/31/2020 11:57:00 AM EDT [facility] Collected By: Nurse Initials: ab Time Collected: 1113 Collected By: Nurse Initials: ab Time Collected: 1113 Name Value Range Interpretation Code Description Data Lita rce(s) Supporting Document(s) Color,Urine Colorl-Dk Y Normal (applies to non-numeric res ults) [facility] Clarity,Urine Clear Normal (applies to non-numeric re sults) [facility] Specific [place],Urine 1.005-1.030 Normal (applies to non- numeric results) [facility] pH,Urine 5.0-8.0 Normal (applies to non-numeric resul ts) [facility] Protein,Urine Negative Normal (applies to non-numeric re sults) [facility] Glucose,Urine Negative Normal (applies to non-numeric re sults) [facility] Ketones,Urine Negative Normal (applies to non-numeric re sults) [facility] Blood,Urine Negative [facility] l Bilirubin,Urine Negative Normal (applies to non-numeric results) [facility] Urobilinogen,Urine 0.2-1.0 Normal (applies to non-numer ic results) [facility] Leukocyte Esterase,Urine Negative [facility] Nitrite,Urine Negative Normal (applies to non-numeric re sults) [facility] ID Date Data Source [id number] 05/31/2020 11:57:00 AM EDT [facility] Collected By: Nurse Initials: ab Time Collected: 1113 Collected By: Nurse Initials: ab Time Collected: 1113 Name Value Range Interpretation Code Description Data Lita rce(s) Supporting Document(s) RBC,Urine None Seen [facility] WBC,Urine None Seen [facility] Casts,Urine None Seen Normal (applies to non-numeric resu lts) [facility] Squamous Cells,Urine None Seen [facility] Bacteria,Urine None Seen [facility]osp ital ID Date Data Source [id number] 05/14/2020 04:30:00 PM EDT [facility] Imaging Services Department Imaging Report [address] [place] [address] %(RAD)RES..mtdd.print.filter("line") Name: JOANNE LEIVA : 1935 Age/Sex: 84M Ordering Provider: RENZO Gómez Med Rec #: [id number] Reg Status: [facility] Room #: Date of Service: 05/14/20 Report Number: [id number] cc:PCP None Send Report To: [id number] XRP/XR Wrist Lt 2 View Ap & Lat Reason for exam: fall, wrist pain FINDINGS: There is a Colles fracture of the distal radius with a distal ulnar styloid fracture also noted. No other significant findings. IMPRESSION: Dital radial Colles fracture. Ulnar styloid fracture. Time portable performed: Fluoroscopy time in seconds: Number of Exposures: Contrast Agent in ml: Method of Administration: REPORT SIGNATURE ON FILE Reported By: Kathleen Finch MD <Electronically signed by Deepthi Finch MD> 05/14/20 1918 Dictation Date/Time: 05/14/20 1310 Transcribed Date/Time: 05/14/20 1630 Gm: EBONIE Name Value Range Interpretation Code Description Data Lita rce(s) Supporting Document(s) ID Date Data Source [id number] 05/13/2020 09:00:00 AM EDT [facility] Procedure Performed By: [facility] [address] [place] [address] Director: Patrizia Frias MD Procedure Performed By: [facility] [address] [place] [address] Director: Patrizia Frias MD Aerococcus sp. No CLSI (or other) standardized method for AST. Frequently susceptible to penicillins; effectiveness of cephalosporins uncertain. Ayesha's Diagnostic Microbiology, Eleventh edition QUANTITY: >100,000/mL {AEROCOCCUS URINAE} AEROCOCCUS URINAESCT Name Value Range Interpretation Code Description Data Lita rce(s) Supporting Document(s) ID Date Data Source [id number] 05/13/2020 07:44:00 AM EDT [facility] Procedure Performed By: [facility] [address] [place] [address] Director: Patrizia Frias MD Name Value Range Interpretation Code Description Data Lita rce(s) Supporting Document(s) Urine Culture [facility]spital Procedure Social History Code Duration Value Status Description Data Source(s ) Smoking 09/27/2020 12:00:00 AM EST Never Smoker completed Never S moker eCW1 ([facility]) Smoking 09/27/2020 12:00:00 AM EST Never Smoker completed Never S moker eCW1 ([facility]) Smoking 09/27/2020 12:00:00 AM EST Never Smoker completed Never S moker eCW1 ([facility]) Smoking 09/27/2020 12:00:00 AM EST Never Smoker completed Never S moker eCW1 ([facility]) Smoking 09/27/2020 12:00:00 AM EST Never Smoker completed Never S moker eCW1 ([facility]) Smoking 09/27/2020 12:00:00 AM EST Never Smoker completed Never S moker eCW1 ([facility]) Smoking 08/23/2020 12:00:00 AM EST Never Smoker completed Never S moker eCW1 ([facility]) Smoking 08/23/2020 12:00:00 AM EST Never Smoker completed Never S moker eCW1 ([facility]) Smoking 08/23/2020 12:00:00 AM EST Never Smoker completed Never S moker eCW1 ([facility]) Smoking 08/23/2020 12:00:00 AM EST Never Smoker completed Never S moker eCW1 ([facility]) Vital Signs ID Date Data Source UNK Name Value Range Interpretation Code Description Data Source(s) Diastolic blood pressure 68 mm[Hg] 68 mm[Hg] eCW1 ([facility]) Systolic blood pressure 128 mm[Hg] 128 mm[Hg] e CW1 ([facility]) Respiratory rate 18 /min 18 /min eCW1 ([facility]) Heart rate 94 /min 94 /min eCW1 ([facility]) Body mass index (BMI) [Ratio] 23.29 kg/m2 23.29 kg/m2 eCW1 ([facility]) Body height 71 [in_i] 71 [in_i] eCW1 ([facility]) Body weight 167 [lb_av] 167 [lb_av] [facility]CW1 [facility]) Diastolic blood pressure 80 mm[Hg] 80 mm[Hg] eCW1 ([facility]) Systolic blood pressure 124 mm[Hg] 124 mm[Hg] e CW1 ([facility]) Body temperature 97.7 [degF] 97.7 [degF] eCW1 ( [facility]) Respiratory rate 18 /min 18 /min eCW1 ([facility]) Heart rate 87 /min 87 /min eCW1 ([facility]) Body mass index (BMI) [Ratio] 22.87 kg/m2 22.87 kg/m2 eCW1 ([facility]) Body height 71 [in_i] 71 [in_i] eCW1 ([facility]) Body weight 164 [lb_av] 164 [lb_av] eCW1 [facility]) ID Date Data Source [id number] 10/28/2020 10:07:00 AM EST [facility] Name Value Range Interpretation Code Description Data Source(s) Weight Measurement Method 8 8 [facility] Weight 2560 2560 [facility] pital Temperature Source 7 7 [facility] Temperature 99.9 99.9 [facility] spital Respiratory Effort 1 1 [facility] Respiratory Rate 16 16 [facility] Pulse Assessment Method 4 4 [facility] Pulse Rate 116 116 [facility] pital Height 64 64 [facility] p[facility] Blood Pressure 125/88 125/88 [facility] Weight Measurement Method 8 8 [facility] Weight 2560 2560 [facility] pital Temperature Source 7 7 [facility] Temperature 99.9 99.9 [facility] spital Respiratory Effort 1 1 [facility] Respiratory Rate 16 16 [facility] Pulse Assessment Method 4 4 [facility] Pulse Rate 116 116 [facility] pital Height 64 64 [facility] Blood Pressure 125/88 125/88 [facility] ID Date Data Source [id number] 10/25/2020 09:17:00 AM EST [facility] Name Value Range Interpretation Code Description Data Source(s) Temperature Source 7 7 [facility] Temperature 98.2 98.2 [facility] spital Respiratory Effort 1 1 [facility] Respiratory Rate 22 22 [facility] Pulse Rate 90 90 [facility] pital Blood Pressure 127/82 127/82 [facility] ID Date Data Source [id number] 10/25/2020 02:46:00 PM EST [facility] Name Value Range Interpretation Code Description Data Source(s) Weight Measurement Method 8 8 [facility] Weight 2720 2720 [facility] pital Temperature Source 7 7 [facility] Temperature 97.9 97.9 [facility] Respiratory Effort 1 1 [facility] Respiratory Rate 16 16 [facility] Pulse Assessment Method 4 4 [facility] Pulse Rate 93 93 [facility] pital Height 71 71 [facility] pital Blood Pressure 147/91 147/91 [facility] ID Date Data Source [id number] 09/24/2020 10:18:00 AM EST [facility] Name Value Range Interpretation Code Description Data Source(s) Weight Measurement Method 8 8 [facility] Weight 2720 2720 [facility] pital Temperature Source 7 7 [facility] 97.6 97.[facility] Res[facility] Effort 1 1 [facility] Respiratory Rate 16 16 [facility] Pulse Assessment Method 4 4 [facility] Pulse Rate 90 90 [facility] pital Height 71 71 [facility] pital Blood Pressure 126/66 126/66 [facility] Weight Measurement Method 8 8 [facility] Weight 2720 2720 [facility] pital Temperature Source 7 7 [facility] Temperature 97.6 97.6 [facility] spital Respiratory Effort 1 1 [facility] Respiratory Rate 16 16 [facility] Pulse Assessment Method 4 4 [facility] Pulse Rate 90 90 [facility] pital Height 71 71 [facility] pital Blood Pressure 126/66 126/66 [facility] ID Date Data Source [id number] 06/05/2020 09:03:00 AM EDT [facility] Name Value Range Interpretation Code Description Data Source(s) Weight Measurement Method 8 8 [facility] Weight 2800 2800 [facility] pital Temperature Source 7 7 [facility] Temperature 97.2 97.2 [facility] Respiratory Effort 1 1 [facility] Respiratory Rate 16 16 [facility] Pulse Assessment Method 4 4 [facility] Pulse Rate 72 72 [facility] pital Height 71 71 [facility] pital Blood Pressure 129/75 129/75 [facility] Weight Measurement Method 8 8 [facility] Weight 2800 2800 [facility] pital Temperature Source 7 7 [facility] Temperature 97.2 97.2 [facility] spital Respiratory Effort 1 1 [facility] Respiratory Rate 16 16 [facility] Pulse Assessment Method 4 4 [facility] Pulse Rate 72 72 [facility] pital Height 71 71 [facility] pital Blood Pressure 129/75 129/75 [facility] ID Date Data Source [id number] 05/22/2020 05:51:00 AM EDT [facility] Name Value Range Interpretation Code Description Data Source(s) Weight Measurement Method 8 8 [facility] Weight 2800 2800 [facility] pital Temperature Source 7 7 [facility] Temperature 97[facility]1 97.1 [facility] Respiratory Rate 18 18 [facility] Pulse Rate 100 100 [facility] pital Height 71 71 [facility] pital Blood Pressure 133/73 133/73 [facility] Weight Measurement Method 8 8 [facility] Weight 2800 2800 [facility] pital Temperature Source 7 7 [facility] Temperature 97.1 97.1 [facility] Respiratory Rate 18 18 [facility] Pulse Rate 100 100 [facility] pital Height 71 71 [facility] pital Blood Pressure 133/73 133/73 [facility] Weight Measurement Method 8 8 [facility] Weight 2800 2800 [facility] pital Temperature Source 7 7 [facility] Temperature 97.1 97.1 [facility] Respiratory Rate 18 18 [facility] Pulse Rate 100 100 [facility] Height 71 71 [facility] pital Blood Pressure 133/73 133/73 [facility] ID Date Data Source [id number] 06/05/2020 11:05:00 AM EDT [facility] Name Value Range Interpretation Code Description Data Source(s) Weight Measurement Method 8 8 [facility] Weight 2800 2800 [facility] pital Temperature Source 7 7 [facility] Temperature 98.8 98.8 [facility] spital Respiratory Effort 1 1 [facility] Respiratory Rate 18 18 [facility] Pulse Assessment Method 4 4 [facility] Pulse Rate 98 98 [facility] pital Height 71 71 [facility] Blood Pressure 124/103 124/103 [facility] Weight Measurement Method 8 8 [facility] Weight 2800 2800 [facility] pital Temperature Source 7 7 [facility] Temperature 98.8 98.8 [facility] spital Respiratory Effort 1 1 [facility] Respiratory Rate 18 18 [facility] Pulse Assessment Method 4 4 [facility] Pulse Rate 98 98 [facility] pital Height 71 71 [facility] Blood Pressure 124/103 124/103 [facility] Weight Measurement Method 8 8 [facility] Weight 2800 2800 [facility] pital Temperature Source 7 7 [facility] Temperature 98.8 98.8 [facility] spital Respiratory Effort 1 1 [facility] Respiratory Rate 18 18 [facility] Pulse Assessment Method 4 4 [facility] Pulse Rate 98 98 [facility] pital Height 71 71 [facility] pital Blood Pressure 124/103 124/103 [facility] Patient Treatment Plan of Care Planned Activity Planned Date Details Description Data Source (s) Finasteride 5 MG Oral Tablet 09/27/2020 12:00:00 AM EST eCW1 ([facility]) Finasteride 5 MG Oral Tablet 09/27/2020 12:00:00 AM EST eCW1 ([facility]) Finasteride 5 MG Oral Tablet 09/27/2020 12:00:00 AM EST eCW1 ([facility]) Finasteride 5 MG Oral Tablet 09/27/2020 12:00:00 AM EST eCW1 ([facility]) Finasteride 5 MG Oral Tablet 09/27/2020 12:00:00 AM EST eCW1 ([facility]) Finasteride 5 MG Oral Tablet 09/27/2020 12:00:00 AM EST eCW1 ([facility])
--- OUTSIDE RECORDS SUMMARY | 2020-11-01 10:39 | CCD ---
Author Author [employer] [facility] Organization [employer] [facility] Address Unknown Phone Unavailable Care Team Providers Care Surveillance Director Name Role Phone Thais Kaba Unavailable PROBLEMS Type Condition ICD9-CM Code [id number] Code Onset Dates Condition S tatus SNOMED Code Notes Problem Bladder stones N21.0 Active 78528518 ALLERGIES No Known Allergies ENCOUNTERS from 1935 to 2020-09-17 Encounter Location Date Provider Diagnosis [facility] U[facility] [address] [place] [address] Sep Thais Kaba IMMUNIZATIONS No Information SOCIAL HISTORY Tobacco Use: Social History Observation Description Date Details (start date - stop date) Never Smoker Sex Assigned At : Social History Observation Description Sex Assigned At Unknown Jew: Question Answer Notes Jew No restoration beliefs that would impact health care. Alcohol Screening: Question Answer Notes Did you have a drink containing alcohol in the past year? No Points 0 Interpretation Negative Tobacco Use: Question Answer Notes Are you a: never smoker REASON FOR REFERRAL No Information VITAL SIGNS No information MEDICATIONS Medication SIG (Take, Route, Frequency, Duration) Notes Start Da te End Date Status PreserVision AREDS Active Rosuvastatin Calcium Acti ve Tamsulosin HCl 0.4 MG 1 capsule Orally Once a day for 30 day(s) Active Vitamin D3 Active Prilosec OTC 20 MG 1 tablet 30 minutes before m orning meal Orally Once a day for 30 day(s) Active PROCEDURES No Information RESULTS No Results REASON FOR VISIT Reschedule MEDICAL (GENERAL) HISTORY Type Description Date Medical History bladder stones Medical History diverticiltis Surgical History mesh in stomach Hospitalization History diverticulitis Goals Section No Information Health Concerns No Information MEDICAL EQUIPMENT No Information MENTAL STATUS No Information FUNCTIONAL STATUS No Information ASSESSMENTS No Information PLAN OF TREATMENT Next Appt Details Provider Name:Geronimo Camejo, 2020-09-27 03:30:00 PM, [address], [place], [address], Insurance Providers Payer Name Payer Address Payer Phone Insured Name Patient Relati onship to Insured Coverage Start Date Coverage End Date 'S ADMINSTRATION ([place]) NON VA CARE [address] [address] [facility] [id number] JOANNE LEIVA self
--- OUTSIDE RECORDS SUMMARY | 2020-11-01 10:39 | CCD ---
Author Author [email or web address] [facility] Organization [employer] [facility] Address Unknown Phone Unavailable Care Team Providers Care Motor Equipment Commanding Officer Name Role Phone Geronimo Camejo Unavailable PROBLEMS Type Condition ICD9-CM Code [id number] Code Onset Dates Condition S tatus SNOMED Code Notes Problem Bladder stones N21.0 Active [id number] ALLERGIES No Known Allergies ENCOUNTERS from 1935 to 2020-09-30 Encounter Location Date Provider Diagnosis [facility] Urology [address] [address] Sep Geronimo Camejo Bladder stones N21.0 IMMUNIZATIONS No Information SOCIAL HISTORY Tobacco Use: Social History Observation Description Date Details (start date - stop date) Never Smoker Sex Assigned At : Social History Observation Description Sex Assigned At Unknown Denominational: Question Answer Notes Denominational No zoroastrian beliefs that would impact health care. Alcohol [...] Information RESULTS No Results REASON FOR VISIT No Information MEDICAL (GENERAL) HISTORY Type Description Date Medical History bladder stones Medical History diverticiltis Surgical History mesh in stomach Surgical History cystoscopy 09/27/2020 Hospitalization History diverticulitis Goals Section No Information Health Concerns No Information MEDICAL EQUIPMENT No Information MENTAL STATUS No Information FUNCTIONAL STATUS No Information ASSESSMENTS Encounter Date Diagnosis Assessment Notes Treatment Notes Treatm ent Clinical Notes Sep, Bladder stones (ICD-10 - N21.0) PLAN OF TREATMENT Medication Medication Name Sig Start Date Stop Date Finasteride 5 MG 1 tablet Orally Once a day for 30 day(s) Sep Insurance Providers Payer Name Payer Address Payer Phone Insured Name Patient Relati onship to Insured Coverage Start Date Coverage End Date 'S ADMINSTRATION ([place]) [place] CARE [address] [address] [employer] [id number] JOANNE LEIVA self
--- OUTSIDE RECORDS SUMMARY | 2020-11-01 10:39 | CCD ---
Author Author [facility] Organization [facility] Address Unknown Phone Unavailable Care Team Providers Care Correction Officer Penitentiary Name Role Phone Thais Kaba Unavailable PROBLEMS Type Condition ICD9-CM Code [id number] Code Onset Dates Condition S tatus SNOMED Code Notes Problem Bladder stones N21.0 Active [id number] ALLERGIES No Known Allergies ENCOUNTERS from 1935 to 2020-09-02 Encounter Location Date Provider Diagnosis [facility] [address] [place] [address] Aug Thais Recore Urinary retention R33.9 and Bladder ston es N21.0 IMMUNIZATIONS No Information SOCIAL HISTORY Tobacco Use: Social History Observation Description Date Details (start date - stop date) Never Smoker Sex Assigned At : Social History Observation Description Sex Assigned At Unknown Shinto: Question Answer Notes Shinto No synagogue beliefs that would impact health care. Alcohol Screening: Question Answer Notes Did you have a drink containing alcohol in the past year? No Points 0 Interpretation Negative Tobacco Use: Question Answer Notes Are you a: never smoker REASON FOR REFERRAL No Information VITAL SIGNS Weight 164 lbs Aug, Height 71 in Aug, BMI 22.87 kg/m2 Aug, Heart Rate 87 /min Aug, Respiratory Rate 18 /min Aug, Temperature 97.7 degrees Fahrenheit Aug, Oximetry 96% Aug, Blood pressure systolic 124 mm Hg Aug, Blood pressure diastolic 80 mm Hg Aug, MEDICATIONS Medication SIG (Take, Route, Frequency, Duration) Notes Start Da te End Date Status PreserVision AREDS Active Rosuvastatin Calcium Acti ve Tamsulosin HCl 0.4 MG 1 capsule Orally Once a day for 30 day(s) Active Vitamin D3 Active Prilosec OTC 20 MG 1 tablet 30 minutes before m orning meal Orally Once a day for 30 day(s) Active PROCEDURES from 1935 to 2020-09-02 Procedure Date Ordered Result Body Site Gupta Catheter Coude Insertion 18F 2020-08-23 N/A Medication: Lidocaine HCl 2% Jelly 5mL Intravesically 2020-08-23 N/A RESULTS No Results REASON FOR VISIT URINARY RETENTION MEDICAL (GENERAL) HISTORY Type Description Date Medical History bladder stones Medical History diverticiltis Surgical History mesh in stomach Hospitalization History diverticulitis Goals Section No Information Health Concerns No Information MEDICAL EQUIPMENT No Information MENTAL STATUS No Information FUNCTIONAL STATUS No Information ASSESSMENTS Encounter Date Diagnosis Assessment Notes Treatment Notes Treatm ent Clinical Notes Aug, Urinary retention (ICD-10 - R33.9) Aug, Bladder stones (ICD-10 - N21.0) PLAN OF TREATMENT No Information Insurance Providers Payer Name Payer Address Payer Phone Insured Name Patient Relati onship to Insured Coverage Start Date Coverage End Date 'S ADMINSTRATION ([place]) NON VA CARE [address] [address] [facility] [id number] JOANNE LEIVA self
--- OUTSIDE RECORDS SUMMARY | 2020-11-01 10:39 | CCD ---
Author Author [employer] [facility] Organization [employer] [facility] Address Unknown Phone Unavailable Care Team Providers Care Technical Aid Name Role Phone Thais Kaba Unavailable PROBLEMS Type Condition ICD9-CM Code [id number] Code Onset Dates Condition S tatus SNOMED Code Notes Problem Bladder stones N21.0 Active [id number] ALLERGIES No Known Allergies ENCOUNTERS from 1935 to 2020-09-25 Encounter Location Date Provider Diagnosis [facility] Urology [address] [place] [address] Sep Thais Kaba IMMUNIZATIONS No Information SOCIAL HISTORY Tobacco Use: Social History Observation Description Date Details (start date - stop date) Never Smoker Sex Assigned At : Social History Observation Description Sex Assigned At Unknown Taoist: Question Answer Notes Taoist No scientologist beliefs that would impact health care. Alcohol [...] Information RESULTS No Results REASON FOR VISIT Cysto MEDICAL (GENERAL) HISTORY Type Description Date Medical History bladder stones Medical History diverticiltis Surgical History mesh in stomach Hospitalization History diverticulitis Goals Section No Information Health Concerns No Information MEDICAL EQUIPMENT No Information MENTAL STATUS No Information FUNCTIONAL STATUS No Information ASSESSMENTS No Information PLAN OF TREATMENT Next Appt Details Provider Name:Geronimo Camejo, 2020-09-27 03:30:00 PM, [address], [place], [address], Insurance Providers Payer Name Payer Address Payer Phone Insured Name Patient Relati onship to Insured Coverage Start Date Coverage End Date 'S ADMINSTRATION (VA) NON VA CARE [address] [address] [facility] [id number] JOANNE LEIVA self
--- OUTSIDE RECORDS SUMMARY | 2020-11-01 10:39 | CCD ---
Author Author [employer] Organization [employer] Address Unknown Phone Unavailable Care Team Providers Care Lap Grinder Name Role Phone Thais Kaba Unavailable PROBLEMS Type Condition ICD9-CM Code [id number] Code Onset Dates Condition S tatus SNOMED Code Notes Problem Bladder stones N21.0 Active [id number] ALLERGIES No Known Allergies ENCOUNTERS from 1935 to 2020-09-13 Encounter Location Date Provider Diagnosis [facility] Urology [address] [place] [address] Aug Thais Kaba IMMUNIZATIONS No Information SOCIAL HISTORY Tobacco Use: Social History Observation Description Date Details (start date - stop date) Never Smoker Sex Assigned At : Social History Observation Description Sex Assigned At Unknown Latter-Day: Question Answer Notes Latter-Day No anabaptist beliefs that would impact health care. Alcohol [...] Information RESULTS No Results REASON FOR VISIT records MEDICAL (GENERAL) HISTORY Type Description Date Medical History bladder stones Medical History diverticiltis Surgical History mesh in stomach Hospitalization History diverticulitis Goals Section No Information Health Concerns No Information MEDICAL EQUIPMENT No Information MENTAL STATUS No Information FUNCTIONAL STATUS No Information ASSESSMENTS No Information PLAN OF TREATMENT Next Appt Details Provider Name:Thais Kaba, 2020-09-06 2 09:00:00 AM, [address], [place], [address], Insurance Providers Payer Name Payer Address Payer Phone Insured Name Patient Relati onship to Insured Coverage Start Date Coverage End Date 'S ADMINSTRATION (VA) NON VA CARE [address] [address] [facility] [id number] JOANNE LEIVA self
[2020-11-01] MEDS ORDERED: ROCURONIUM BROMIDE 50 MG/5 ML VIAL As Ordered ONE (11:46)
[2020-11-01] MEDS ORDERED: LevoFLOXacin IV 500 MG in IV 1 EA IV ONE (13:40)
[2020-11-01] MEDS ORDERED: BACITRACIN OINTMENT 30GM TUBE As Ordered ONE (13:55)
[2020-11-01] MEDS ORDERED: ePHEDrine SULFATE 25 MG/5 ML(5MG/ML) SYRINGE As Ordered ONE (14:09)
[2020-11-01] MEDS ORDERED: PHENYLephrine 500MCG 5ML (100MCG/ML) SYRINGE As Ordered ONE ×2 (14:09→14:57)
[2020-11-01] MEDS ORDERED: ACETAMINOPHEN 1000MG 100ML IV BTL (OFIRMEV) (J0131 PER 10MG) As Ordered ONE (14:09)
[2020-11-01] MEDS ORDERED: SUGAMMADEX SODIUM 500 MG/5 ML VIAL (BRIDION) As Ordered ONE (14:47)
[2020-11-01] MEDS ORDERED: oxyCODONE 5MG TAB As Ordered ONE (16:15)
[2020-11-01] MEDS ORDERED: OXYC1TAB23 PO (16:20)
[2020-11-01] MEDS ORDERED: fentaNYL 100 MCG/2 ML INJECTION (J3010) IV PRN (16:35)
[2020-11-01] MEDS ORDERED: oxyCODONE 5MG TAB PO PRN (16:35)
[2020-11-01] MEDS ORDERED: LR 1,000 ML IV SCH (16:35)
[2020-11-01] MEDS ORDERED: ONDANSETRON 4MG/2ML VIAL IV PRN (16:35)
[2020-11-01] MEDS ORDERED: PERCOCET 5MG/325MG TAB PO PRN (16:40)
[2020-11-01 17:45] VITALS: BP 139/87
--- NOTE | 2020-11-04 07:52 | RO ---
OPERATIVE NOTE DATE OF OPERATION: 11/01/2020 PREOPERATIVE DIAGNOSIS: Bladder stone, phimosis. POSTOPERATIVE DIAGNOSIS: Bladder stone, phimosis. PROCEDURE: Cystoscopy, laser cystolitholapaxy, circumcision. SURGEON: Carlos Hurtado MD FRONT ELEVATOR OPERATOR: None. ANESTHESIA: General. OPERATIVE INDICATIONS: This is an 84-year-old male who has been troubled with phimosis as well as approximately 2 cm bladder stone. He is brought to the operating room today for treatment. DESCRIPTION OF PROCEDURE: The patient was brought to the operating room and general anesthesia was induced. Prophylactic antibiotics were infused. He was placed in the dorsal lithotomy position and prepped and draped in usual the sterile fashion. At this point the resectoscope was inserted into the urethral meatus and advanced into the bladder using the visual obturator. At this point the 2 cm size stone was seen. This stone was then fragmented into smaller pieces using a 1000 micron laser fiber. All the stone fragments were then removed from the bladder and sent for analysis. Once that was done the bladder was emptied and the patient was re-prepped for the circumcision. At this point circumcising incisions were made at the level of the coronal sulcus with the skin of the penile shaft retracted over top of the glans and then also with the skin retracted off the glans. All the foreskin in between these two circumcising incisions was then removed using electrocautery. Once that was done any areas of bleeding were controlled with electrocautery. We then reapproximated the skin of the penile shaft to the glans using interrupted 3-0 chromic sutures. Once this was done dressings were applied including Mario and Coban. After dressings were placed this marked the conclusion of the procedure. The patient was taken out of the dorsal lithotomy position, awakened from anesthesia, and transported to the recovery room in stable condition. ESTIMATED BLOOD LOSS: 15 mL. COMPLICATIONS: None. SPECIMENS: Bladder stone fragments, foreskin. PLAN: The patient will follow up in urology clinic in a few weeks for postoperative visit. MARIELY
== END 2020-11-01 17:50 | disposition home or self-care (01) ==
LOC: M SDC 10:30
PROVIDERS: ATTEND Urology
DX: N21.0 Calculus in bladder (principal); N47.1 Phimosis; N40.0 Benign prostatic hyperplasia without lower urinary tract symptoms; E78.5 Hyperlipidemia, unspecified; K57.92 Diverticulitis of intestine, part unspecified, without perforation or abscess without bleeding; Z79.899 Other long term (current) drug therapy; Z88.0 Allergy status to penicillin; Z88.5 Allergy status to narcotic agent; Z88.8 Allergy status to other drugs, medicaments and biological substances
CPT/HCPCS: 52317; 54161; 82365; 88300; 88304; J0131; J1100; J1956; J2370; J2405; J3010

== ENCOUNTER → 2020-12-06 | Outpatient (REF) | payer OTHER ==
[~2020-12-06] MED LIST changes: -LIDOCAINE 2% 100MG/5ML SDV (FOR ANES.) As Ordered ONE; -LR 1,000 ML IV ONE; -ONDANSETRON 4MG/2ML VIAL As Ordered ONE; +OXYC1TAB23 PO; -dexameTHASONE 4 MG/ML 1ML VIAL (J1100 PER 1MG) As Ordered ONE; -fentaNYL 100 MCG/2 ML INJECTION (J3010) As Ordered ONE; -propofoL 200 MG/20 ML VIAL As Ordered ONE
[2020-12-06 13:45] LABS: APPEARANCE, URINE TURBID (CLEAR); BACTERIA, URINE AUTO 1+ (NEGATIVE); BILIRUBIN, URINE AUTO NEGATIVE (NEGATIVE); BLOOD, URINE BLOOD 1+ (NEGATIVE); COLOR, URINE YELLOW (YELLOW); GLUCOSE, URINE (UA) AUTO NEGATIVE (NEGATIVE); KETONE, URINE AUTO TRACE mg/dL (NEGATIVE); LEUKOCYTE ESTERASE, URINE AUTO 3+ (NEGATIVE); MUCUS, URINE SMALL (NEGATIVE); NITRITE, URINE AUTO POSITIVE (NEGATIVE); PROTEIN, URINE AUTO 1+ mg/dL (NEGATIVE); RBC, URINE AUTO 4 /HPF (0-3); SPECIFIC GRAVITY URINE AUTO 1.016 (1.002-1.035); SQUAMOUS EPITHELIAL CELL UR AU 1 /HPF (0-6); UROBILINOGEN, URINE AUTO 0.2 mg/dL (0.0-2.0); WBC, URINE AUTO TNTC /HPF (0-3)
== END ==
LOC: M SMT 13:25
PROVIDERS: ATTEND Nurse Practitioner Women's Health
DX: R33.9 Retention of urine, unspecified (principal)
CPT/HCPCS: 51702; 51798; 81001; 87088; 87186; G0463

== ENCOUNTER 2021-02-06 12:05 | Day surgery (SDC) | payer OTHER ==
[~2021-02-06] VITALS: Ht 175.3 cm; Wt 77.9 kg
[~2021-02-06 12:05] MED LIST changes: +FERR32TA PO; +OMEP-218 PO
[2021-02-06] MEDS ORDERED: LR 1,000 ML IV ONE (13:15)
[2021-02-06] MEDS ORDERED: LevoFLOXacin IV 500 MG in IV 1 EA IV ONE (13:45)
[2021-02-06] MEDS ORDERED: fentaNYL 100 MCG/2 ML INJECTION (J3010) As Ordered ONE ×2 (14:32→15:22)
[2021-02-06] MEDS ORDERED: LIDOCAINE 2% 100MG/5ML SDV (FOR ANES.) As Ordered ONE (14:33)
[2021-02-06] MEDS ORDERED: propofoL 200 MG/20 ML VIAL As Ordered ONE (14:34)
[2021-02-06] MEDS ORDERED: HYDROmorphone HCL 2 MG/ML 1ML VIAL (J1170) As Ordered ONE (15:55)
[2021-02-06] MEDS ORDERED: PHENYLephrine 500MCG 5ML (100MCG/ML) SYRINGE As Ordered ONE (16:45)
[2021-02-06] MEDS ORDERED: ONDANSETRON 4MG/2ML VIAL IV PRN ×2 (17:30→19:40)
[2021-02-06] MEDS ORDERED: fentaNYL 100 MCG/2 ML INJECTION (J3010) IV PRN (17:30)
[2021-02-06] MEDS ORDERED: MEPERIDINE INJ 25 MG/ML VIAL (J2175) IV PRN (17:30)
[2021-02-06] MEDS ORDERED: PERCOCET 5MG/325MG TAB PO PRN (17:30)
--- NOTE | 2021-02-06 17:49 | RO ---
OPERATIVE NOTE DATE OF OPERATION: 02/06/2021 PREOPERATIVE DIAGNOSIS: Benign prostatic hyperplasia with urinary retention. POSTOPERATIVE DIAGNOSIS: Benign prostatic hyperplasia with urinary retention. PROCEDURE: Cystoscopy, button transurethral electrovaporization of the prostate. SURGEON: Carlos Hurtado MD. HARNESS PREPARER: None. ANESTHESIA: General. OPERATIVE INDICATIONS: This is an 85-year-old male with benign prostatic hyperplasia and urinary retention who is brought to the operating room today for treatment. DESCRIPTION OF PROCEDURE: The patient is brought to the operating room and general anesthesia is induced. Prophylactic antibiotics were infused. He was then placed in the dorsolithotomy position and prepped and draped in the usual sterile fashion. At this point, a resectoscope is inserted into the urethral meatus and advanced to the bladder using a visual obturator. Of note, the patient had bilobar benign prostatic hyperplasia with a very high-riding bladder neck. At this point, I made note of the location of both the ureteral orifices and they were not close to the bladder neck. At this point, I began vaporizing hyperplastic tissue in both lateral lobes and circumferentially at the bladder neck. I kept doing this until there was a clear channel established. Throughout the procedure, I made sure not to vaporize close to the ureteral orifices or distal to the verumontanum. Once satisfied there was a clear channel established, hemostasis was obtained using the coagulation current. Once satisfied with hemostasis, the resectoscope was removed and an 18-Bulgarian Gupta catheter was inserted into the bladder. The balloon was filled with 15 mL of sterile water and the catheter was then connected to gravity drainage. This marked the conclusion of the procedure. The patient was then taken out of the dorsolithotomy position, awakened from anesthesia, and transported to the recovery room in stable condition. ESTIMATED BLOOD LOSS: 20 mL. COMPLICATIONS: None. SPECIMEN(S): None. PLAN: The patient will follow-up in the urology clinic in approximately one week for catheter removal and voiding trial. MARIELY
[2021-02-06] MEDS ORDERED: oxyCODONE 5MG TAB PO PRN ×2 (17:50→18:15)
[2021-02-06] MEDS ORDERED: ACETAMINOPHEN TAB 650MG DOSE (2X325MG) PO PRN ×2 (18:05→19:40)
[2021-02-06] MEDS ORDERED: METOCLOPRAMIDE INJ 10MG/2ML VIAL (J2765 PER 1) As Ordered ONE (18:10)
[2021-02-06] MEDS ORDERED: METOCLOPRAMIDE INJ 10MG/2ML VIAL (J2765 PER 1) IV PRN ×2 (18:15→19:40)
[2021-02-06] MEDS ORDERED: LR 500 ML IV SCH (18:20)
[2021-02-06] MEDS ORDERED: PROMETHAZINE INJ 25 MG/ML VIAL (J2550) IV ONE (18:40)
[2021-02-06 19:12] LABS: HEMATOCRIT 39.8 % (42.0-52.0); HEMOGLOBIN 12.9 g/dl (13.5-17.5)
[2021-02-06 20:32] VITALS: BP 129/85
[2021-02-06] MEDS ORDERED: OMEPRAZOLE 20 MG CAP PO SCH (21:00)
[2021-02-06] MEDS ORDERED: ROSUVASTATIN 10 MG TAB (CRESTOR) PO SCH (21:00)
[2021-02-06] MEDS ORDERED: TAMSULOSIN 0.4 MG CAP PO SCH (21:00)
[2021-02-06] MEDS: NITROFURANTOIN (MACROBID) 100 MG CAP PO SCH (22:16)
[2021-02-06] MEDS: DOCUSATE SODIUM 100MG CAPSULE PO SCH (22:16)
[2021-02-07 02:07] VITALS: BP 106/60
[2021-02-07 05:44] VITALS: BP 103/61
--- NOTE | 2021-02-07 08:40 | IPNPDOC ---
Subjective Review oF Systems Chief Complaint The patient is a 85-year-old male admitted with a reason for visit of Benign Prostatic Hyperplasia. Events since Last Encounter No acute events o/n. No n/v. Denies SOB or chest pain. No f/c/ns. Objective Physical Examination General Exam: Alert, Cooperative, No Acute Distress ABDOMEN EXAM: Soft; No: Tenderness Skin Exam: Nl turgor and temperature Neuro Exam: Normal Speech Psych Exam: Mental status NL, Mood NL Other physical findings catheter draining yellow urine Vital Signs/I&O Vital Signs Date Time Temp Pulse Resp B/P (MAP) Pulse Ox O2 Delivery O2 Flow Rate FiO2 02/07/21 05:44 97.4 77 20 103/61 (75) 91 Room Air 02/06/21 21:00 1.0 02/06/21 17:25 100 I&O- Last 24 Hours up to 6 AM 02/07/21 06:00 Intake Total 2220 ml Output Total 870 ml Balance 1350 ml Laboratory Data CBC/BMP Laboratory Tests 02/06/21 18:54 Assessment/Plan Date Seen The patient was seen on 02/07/21. Patient Summary This is an 85 y/o M POD1 s/p cysto, button TURP, admitted for n/v in the PACU as well as difficulty weaning him off O2. He is saturating well on RA now and had no additional n/v since he left the PACU. Plan/VTE VTE Prophylaxis Ordered?: Yes VTE Exclusion Mechanical Proph: N/A:VTE Prophy Ordered Plan/Urinary Catheter Reason for insertion/continuin: Acute obstruct/retention Plan - regular diet - ambulate - d/c w/ JULIOCESAR Flores MD Feb 07, 2021 08:39
[2021-02-07] MEDS: DOCUSATE SODIUM 100MG CAPSULE PO SCH (08:53)
[2021-02-07] MEDS: NITROFURANTOIN (MACROBID) 100 MG CAP PO SCH (08:53)
== END 2021-02-07 10:26 | disposition home or self-care (01) ==
LOC: M SDC 12:05 → M MS5PR 20:10 → M SDC 02-07 10:26
PROVIDERS: ATTEND Urology
DX: N40.1 Benign prostatic hyperplasia with lower urinary tract symptoms (principal); E78.5 Hyperlipidemia, unspecified; K57.90 Diverticulosis of intestine, part unspecified, without perforation or abscess without bleeding; Z87.891 Personal history of nicotine dependence; Z79.899 Other long term (current) drug therapy; Z88.0 Allergy status to penicillin; Z88.5 Allergy status to narcotic agent; Z88.8 Allergy status to other drugs, medicaments and biological substances
CPT/HCPCS: 36415; 52601; 85014; 85018; J1170; J1956; J2370; J2405; J2765; J3010

== ENCOUNTER → 2024-06-15 | Outpatient (REF) | payer OTHER, MEDICARE ==
[~2024-06-15] MED LIST changes: -D31000TA2 PO; +OMEP-173 PO; -OMEP-218 PO; -ROSU20TA5 PO; +ROSU20TA86 PO; +VITA100093 PO
[2024-06-15 18:51] LABS: AMORPHOUS SEDIMENT SMALL (NEGATIVE); APPEARANCE, URINE CLOUDY (CLEAR); BACTERIA, URINE AUTO 1+ (NEGATIVE); BILIRUBIN, URINE AUTO NEGATIVE (NEGATIVE); BLOOD, URINE BLOOD NEGATIVE (NEGATIVE); COLOR, URINE YELLOW (YELLOW); GLUCOSE, URINE (UA) AUTO NEGATIVE (NEGATIVE); KETONE, URINE AUTO NEGATIVE (NEGATIVE); LEUKOCYTE ESTERASE, URINE AUTO 2+ (NEGATIVE); MUCUS, URINE SMALL (NEGATIVE); NITRITE, URINE AUTO POSITIVE (NEGATIVE); PROTEIN, URINE AUTO 1+ mg/dL (NEGATIVE); RBC, URINE AUTO 3 /HPF (0-3); SPECIFIC GRAVITY URINE AUTO 1.019 (1.002-1.035); SQUAMOUS EPITHELIAL CELL UR AU 1 /HPF (0-6); UROBILINOGEN, URINE AUTO 0.2 mg/dL (0.0-2.0); WBC, URINE AUTO TNTC /HPF (0-3)
== END ==
LOC: M SMT 17:02
PROVIDERS: ATTEND Nurse Practitioner Family
DX: N40.1 Benign prostatic hyperplasia with lower urinary tract symptoms (principal)

== ENCOUNTER → 2024-06-23 | Outpatient (REF) | payer MEDICARE | LOC: M SMT 12:30 | PROVIDERS: ATTEND Nurse Practitioner Family | DX: R33.9 Retention of urine, unspecified (principal) ==

== ENCOUNTER 2024-07-07 12:07 | Observation (INO) | payer MEDICAID, MEDICARE, OTHER ==
[~2024-07-07] VITALS: Ht 180.3 cm; Wt 68.0 kg
[2024-07-07] MEDS: LIDOCAINE 2% 5ML JELLY UROJET TOP ONE (15:00)
[2024-07-07 16:06] LABS: BASO % 0.1 % (0.0-1.0); EOS % 0.1 % (0.0-3.0); HEMATOCRIT 34.3 % (42.0-52.0); HEMOGLOBIN 11.2 g/dl (13.5-17.5); LYMPH % 10.6 % (24.0-44.0); MEAN CORPUSCULAR HEMOGLOBIN 34.1 pg (27.0-33.0); MEAN CORPUSCULAR HGB CONC 32.7 g/dl (32.0-36.5); MEAN CORPUSCULAR VOLUME 104.6 fl (80.0-96.0); MONO % 9.8 % (2.0-8.0); NEUTROPHILS # 7.6 10^3/uL (1.5-8.5); NEUTROPHILS % 78.7 % (36.0-66.0); PLATELET COUNT, AUTOMATED 195 10^3/uL (150-450); RED BLOOD COUNT 3.28 10^6/uL (4.30-6.10); WHITE BLOOD COUNT 9.7 10^3/uL (4.0-10.0)
[2024-07-07 16:30] LABS: CALCIUM LEVEL 9.1 MG/DL (8.3-10.6); CREATININE FOR GFR 1.87 MG/DL (0.70-1.30); GLOMERULAR FILTRATION RATE 36.5 (>35); POTASSIUM SERUM 4.1 MMOL/L (3.5-5.1)
[2024-07-07] MEDS: LevoFLOXacin 500 MG TABLET PO ONE (17:28)
[2024-07-07 17:33] LABS: MAGNESIUM LEVEL 2.6 MG/DL (1.8-2.4)
[2024-07-07] MEDS ORDERED: OCUVTAB4 PO (17:58)
[2024-07-07] MEDS ORDERED: HOME MED LIST COMPLETE! XX SCH (18:00)
[2024-07-07] MEDS ORDERED: ACETAMINOPHEN 325 MG TAB PO PRN (18:10)
[2024-07-07 18:12] LABS: CREATININE,RANDOM URINE 114.3 MG/DL
[2024-07-07 18:16] LABS: TOTAL PROTEIN,RANDOM URINE 322.5 MG/DL (0.0-14.0)
[2024-07-07] MEDS: NS 1,000 ML IV SCH (18:55)
[2024-07-07 19:42] LABS: INR 1.2; PROTHROMBIN TIME 15.5 SECONDS (12.5-14.5)
[2024-07-07] MEDS: TAMSULOSIN 0.4 MG CAP PO SCH (21:15)
[2024-07-07] MEDS: OMEPRAZOLE 20MG CAP PO SCH (21:15)
[2024-07-07] MEDS: diphenhydrAMINE 25MG CAP PO SCH (21:15)
[2024-07-07] MEDS: ASCORBIC ACID 500 MG TAB PO SCH (21:16)
[2024-07-07 21:56] VITALS: BP 138/68; TEMP 97.2; O2SAT 97
[2024-07-07] MEDS: FERROUS GLUCONATE 324 MG TAB PO SCH (22:39)
[2024-07-08 04:01] VITALS: BP 111/48; TEMP 97.5; O2SAT 93
[2024-07-08 06:20] LABS: HEMOGLOBIN 11.6 g/dl (13.5-17.5); MEAN CORPUSCULAR HEMOGLOBIN 33.5 pg (27.0-33.0); MEAN CORPUSCULAR HGB CONC 32.2 g/dl (32.0-36.5); PLATELET COUNT, AUTOMATED 205 10^3/uL (150-450); RED BLOOD COUNT 3.46 10^6/uL (4.30-6.10); WHITE BLOOD COUNT 9.7 10^3/uL (4.0-10.0)
[2024-07-08 06:40] LABS: ALBUMIN 2.3 G/DL (3.2-5.2); BILIRUBIN,TOTAL 0.5 MG/DL (0.3-1.2); CALCIUM LEVEL 8.7 MG/DL (8.3-10.6); CREATININE FOR GFR 1.54 MG/DL (0.70-1.30); GLOMERULAR FILTRATION RATE 45.7 (>35); POTASSIUM SERUM 3.8 MMOL/L (3.5-5.1); TOTAL PROTEIN 5.4 G/DL (5.7-8.2)
[2024-07-08 12:00] VITALS: BP 105/55; TEMP 97.2; O2SAT 95
[2024-07-08] MEDS: LevoFLOXacin 250 MG TABLET PO SCH (17:23)
[2024-07-08 20:21] VITALS: BP 108/63; TEMP 97.2; O2SAT 96
[2024-07-09 04:02] VITALS: BP 121/69; TEMP 97; O2SAT 94
[2024-07-09 06:36] LABS: HEMATOCRIT 31.3 % (42.0-52.0); HEMOGLOBIN 10.1 g/dl (13.5-17.5); MEAN CORPUSCULAR HEMOGLOBIN 33.8 pg (27.0-33.0); MEAN CORPUSCULAR HGB CONC 32.3 g/dl (32.0-36.5); MEAN CORPUSCULAR VOLUME 104.7 fl (80.0-96.0); PLATELET COUNT, AUTOMATED 218 10^3/uL (150-450); RED BLOOD COUNT 2.99 10^6/uL (4.30-6.10); WHITE BLOOD COUNT 8.8 10^3/uL (4.0-10.0)
[2024-07-09 06:58] LABS: ALBUMIN 1.9 G/DL (3.2-5.2); ALKALINE PHOSPHATASE 140 U/L (40-129); ALT/SGPT 38 U/L (7.0-40); AST/SGOT 22 U/L (<34); BILIRUBIN,TOTAL 0.3 MG/DL (0.3-1.2); BLOOD UREA NITROGEN 31 MG/DL (9-23); CALCIUM LEVEL 8.3 MG/DL (8.3-10.6); CARBON DIOXIDE LEVEL 22 MMOL/L (20-31); CHLORIDE LEVEL 111 MMOL/L (98-107); CREATININE FOR GFR 1.19 MG/DL (0.70-1.30); GLOMERULAR FILTRATION RATE > 60.0 (>35); GLUCOSE, FASTING 124 MG/DL (74-106); POTASSIUM SERUM 4.1 MMOL/L (3.5-5.1); SODIUM LEVEL 141 MMOL/L (136-145); TOTAL PROTEIN 4.8 G/DL (5.7-8.2)
[2024-07-09] MEDS ORDERED: LEVO1TAB38 PO (07:22)
== END 2024-07-09 12:10 | disposition home or self-care (01) ==
LOC: M ED 12:07 → M ED INP 12:08 → M MS5PR 22:03
PROVIDERS: ADMIT Internal Medicine; ATTEND Internal Medicine
DX: N13.8 Other obstructive and reflux uropathy (principal); N17.9 Acute kidney failure, unspecified; N39.0 Urinary tract infection, site not specified; N20.1 Calculus of ureter; R33.9 Retention of urine, unspecified; Z85.46 Personal history of malignant neoplasm of prostate; N52.9 Male erectile dysfunction, unspecified; Z79.2 Long term (current) use of antibiotics; K57.90 Diverticulosis of intestine, part unspecified, without perforation or abscess without bleeding; E78.5 Hyperlipidemia, unspecified; D50.9 Iron deficiency anemia, unspecified; E55.9 Vitamin D deficiency, unspecified; Z79.899 Other long term (current) drug therapy; Z88.0 Allergy status to penicillin; Z88.5 Allergy status to narcotic agent; Z88.8 Allergy status to other drugs, medicaments and biological substances
CPT/HCPCS: 36415; 51702; 74176; 80048; 80053; 81000; 81015; 82550; 82570; 83735; 83930; 83935; 84133; 84156; 84300; 85025; 85027; 85610; 87040; 87086; 96360; 96361; 97162; 99285; G0378